=== PATIENT | male | born 1950 | race Caucasian/White ===

== ENCOUNTER 2023-03-11 15:00 | Outpatient (RCR) | payer MEDICARE, SELFPAY ==
--- NOTE | 2023-03-02 16:09 | PTOPEVAL1 ---
Assessment and note entered by Igor Randle, PT Evaluation Information Assessment Status Evaluation Diagnosis Left knee pain, Left Hip OA, Gait disturbance post stroke Onset 2020 Subjective Information Reports that he is having a lot of pain on his L LE and does not trust it. He feels unstable but f he shifts weight to right side he feel more unstable. He has been in discussion with MD about L ALBERT. He does have a history of large cell throat and lung cancer which has significantly diminished his endurance. He had the whole left top lobe of his lung out. He feels most of his L knee issue is due to left hip instability. Reported Pain Level Pain Score 3: Self Report Assessment PT Clinical Summary Patient presents with significant left hip mobility deficits affecting functional mobility, gait, and ADLs. His strength is adequate throughout his available ROM at this time. Will benefit from skilled therapy to address deficits to maximize function. Plan of Care Interventions Aquatic Therapy,Gait Training,Manual Therapy,Neuro Re-education,Therapeutic Activities,Therapeutic Exercise PT Services Indicated Yes Treatment Frequency and 2x/week for 4 weeks Duration These treatments will address the objective and functional deficits as defined above. The patient will be advanced safely and appropriately in order for the patient to progress towards his/her prior level of function. Additional exercises will be introduced and as well as a comprehensive home exercise program upon discharge, if needed, ?to ensure carryover of functional gains achieved in the clinic. This treatment plan has been reviewed and agreement upon by the patient.
--- NOTE | 2023-03-02 16:11 | OPREHPOC ---
Outpatient Therapy Plan of Care This is a Multidisciplinary Plan of Care that may contain components documented by all disciplines (PT, OT, and ST.) PT Problem 1 PT Problem #1 Knowledge Deficit PT Goal 1 Goal Patient will be independent with HEP to improve hip mobility. Target Visit 4 PT Problem 2 PT Problem #2 Impaired Gait PT Goal 1 Goal Ambulate with L stance phase passing mid stance consistently to improve functional gait cycle. PT Problem 3 PT Problem #3 Impaired Range of Motion PT Goal 1 Goal Patient will demonstrate 35 degrees of left hip external rotation to improve capsular restriction Target Visit 8 PT Goal 2 Goal Patient will achieve left hip extension of 5+ degrees to improve gait and ADL function Target Visit 8 PT Problem 4 PT Problem #4 Impaired Range of Motion PT Goal 1 Goal Demonstrate no L hip pain with terminal L knee extension Target Visit 8
--- NOTE | 2023-03-16 10:02 | PTOPDC ---
Assessment and note entered by Igor Randle, PT Discharge Information Assessment Status Discharge - Pt Not Present Diagnosis Left knee pain, Left Hip OA, Gait disturbance post stroke Onset 2020 Subjective Information Patient called and requested cancellation of appointments due to severe pain with mobilization activity. States that he does not feel that he can handle it and that the motion hurts too much. I spoke with him regarding maintaining function until his surgical procedure scheduled in June. Assessment PT Clinical Summary Patient will be discharged from therapy at this time due to lack opf progress and regression of pain with mobilization activity. We discussed his situation and the amount of structural block and instability io hip attributing to pain and mobility deficits. I recommended functional motion to tolerance and follow up with MD at this time. Plan of Care PT Services Indicated Discharge to [facility] with MD follow up.
== END 2023-03-16 11:04 | disposition home or self-care (01) ==
LOC: ANHGOSHPT 15:00
PROVIDERS: Visit Provider Physician Assistant
DX: M25.562 Pain in left knee (principal); M16.12 Unilateral primary osteoarthritis, left hip; I69.398 Other sequelae of cerebral infarction; R26.9 Unspecified abnormalities of gait and mobility
CPT/HCPCS: 97110; 97140; 97161; 97530

== ENCOUNTER 2024-10-09 08:41 | Emergency (ER) | payer MEDICARE, SELFPAY ==
--- OUTSIDE RECORDS SUMMARY | 2024-10-09 08:46 | XMS_ITS | Encounter Summary ---
Author Organization [facility] Address [address] [place] [address] Phone Care Team Providers Care Sausage Stuffer Name Role Phone Shan Johnson MD Unavailable Feliciano Bates MD Unavailable [phone] Ector Ivey MD Unavailable [phone] Shan Johnson MD Primary Care Provider + Rodrigo Orr MD Unavailable Efrain Pennington MD Unavailable Claudia Mesa MD Unavailable Sae Suárez MD Unavailable Shan Johnson MD Primary Care Provider + Simona Long MD Unavailable [phone] Melvin Cisneros MD Primary Care Provider [phone] Norma Altamirano MD Unavailable Rosey Thibodeaux [facility] Unavailable Freeman Nickerson MD Unavailable Preet Mak MD Unavailable Bird Steve MA Unavailable Encounter Details Date Type Department Care Team (Latest Contact Info) Description 04/30/2020 Orders Only [facility] Scanning, Provider Social History Tobacco Use Types Packs/Day Years Used Date Smoking Tobacco: Former Cigarettes 1.3 50 1 03/17/1969 - 01/16/2020 Smokeless Tobacco: Never Comments:Smoking History Pac ks/day: 5 Cigarettes Alcohol Use Standard Drinks/Week Comments Not Currently 0 (1 standard drink = 0.6 oz pur e alcohol) none in 1 1/2 years Sex and Gender Information Value Date Recorded Sex Assigned at Not on file Legal Sex 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 Gender Identity Not on file Sexual Orientation Not on file documented as of this encounter Plan of Treatment Not on file documented as of this encounter Procedures Procedure Name Priority Date/Time Associated Diagnosis Comments SCAN - PATHOLOGY 04/30/2020 documented in this encounter Results * SCAN - PATHOLOGY (04/30/2020) Provider Scanning Final Result documented in this encounter Visit Diagnoses Not on filedocumented in this encounter Care Teams Sausage Stuffer Relationship Specialty [place] [address] [place] [address] [place] [address] PCP - General Internal Medicine 02/06/20 09/16/20 Shan Johnson MD [address] [place] [address] [place] [address] PCP - General Internal Medicine 09/17/20 09/02/21 Melvin Cisneros MD [address] [place] [address] PCP - General Family Medicine 09/03/21 Shan Johnson MD [address] [place] [address] [place] [address] 06/12/16 09/16/20 Feliciano Bates MD [address] [address] Surgeon Cardiothoracic Surgery 02/05/20 [place] [address] [facility] [address] [place] [address] Consulting Physician Pulmonary Disease 02/05/20 3 Rodrigo Orr MD [address] [place] [address] [address] [place] [address] Consulting Physician Gastroenterology 04/05/20 09/16/20 Efrain Pennington MD [address] [place] [address] Medical Oncologist/Hematologi [facility] Oncology 04/17/20 01/07/21 Claudia Mesa MD [address] [place] [address] Consulting Physician Gastroenterology 09/17/20 Sae Suárez MD [address] [place] [address] Consulting Physician Otolaryngology 09/17/20 Simona Long MD [address] [place] [address] Medical Oncologist/Hematologi [facility] On[facility] 01/08/21 Norma Altamirano MD [address] [place] [address] Radiation Oncologist Radiation Oncology 12/23/21 Rosey Thibodeaux, [facility] [address] [place] [address] Pharmacist Pharmacy 01/29/23 03/09/23 Freeman Nickerson MD [address] [place] [address] [address] [place] [address] Consulting Physician Pulmonary Disease 09/07/22 Preet Mak MD [address] [place] [address] [address] [place] [address] Surgeon Orthopedic Surgery 07/13/23 Bird Steve MA [address] [place] [address] [employer] 07/14/23 07/15/23 documented as of this encounter
--- OUTSIDE RECORDS SUMMARY | 2024-10-09 08:46 | XMS_ITS | Clinical Summary ---
Author Organization [facility] Address [address] [place] [address] Care Team Providers Care Horse Breaker Name Role Phone Shan Johnson MD Primary Care Provider [phone] Stephen Bender MD Unavailable [phone] Source Comments [facility] [employer],non-owned Affiliates and Associated Physician Practices is amultiple site organization consisting of ambulatory clinics and hospital sitesin [place], [place], [place] and [place]. This disclosure is being madepursuant to the Care Everywhere program and may not contain all information available regarding this patient. Last updated 17.[facility] Allergies Active Allergy Reactions Criticality Noted Date Comments Ibuprofen Other 09/22/2019 Affects liver function Medications * Be aware that medications may not be up to date on this document. Alwaysverify current medications with the patient. levothyroxine (SYNTHROID) 150 MCG tablet Take 150 mcg by mouth daily before breakfast Active oxyCODONE-aceta minophen (PERCOCET) 5-325 MG tablet Take 1 tablet by mouth once daily 9 Active clopidogrel (PLAVIX) 75 MG tablet Take 1 tablet by mouth once daily 7 Active hydroCHLOROthia zide (HYDRODIURIL) 25 MG tablet Take 1 tablet by mouth once daily 0 Active atorvastatin (LIPITOR) 20 MG tablet Take 1 tablet by mouth once daily 7 Active METOPROLOL SUCCINATE ER PO Take 100 mg by mouth once daily 9 Active Active Problems Problem Noted Date Diagnosed Date Carotid occlusion, left 09/22/2019 Carotid stenosis, right 09/22/2019 History of stroke without residual deficits 03/16 Abdominal aortic aneurysm (AAA) without rupture 05/09/2018 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 05/09/2018 Current smoker 05/09/2018 Dyslipidemia 03/24/2017 Essential hypertension 12/20/2015 Overview (09/22/2019): New diagnosis 12/2015, no hx of CAD in past- ECG abnormal- asymptomatic Tx metoprolol and needs recent labs retrieved Per pt possible renal function impairment Smoking hx HTN - Hypertension Hypothyroidism 12/20/2015 Overview (09/22/2019): 11/08/2015- TSH 36-scanned to media Hypothyroid Social History Tobacco Use Types Packs/Day Years Used Date Smoking Tobacco: Every Day Cigarettes 0.5 50 Smokeless Tobacco: Never Alcohol Use Standard Drinks/Week Comments Not Currently 0 (1 standard drink = 0.6 oz pur e alcohol) Sex and Gender Information Value Date Recorded Sex Assigned at Not on file Legal Sex Male 4:43 PM CDT Gender Identity Not on file Sexual Orientation Not on file Plan of Treatment Health Maintenance Due Date Last Done Comments COLOGUARD (AGES 45-75) - COL ON CA SCREENING 1950 COLON MONITORING 1950 COLONOSCOPY - COLON CA SCREENING 1950 CT COLONOGRAPHY - COLON CA SCREENING 1950 Colorectal Cancer Screening 1950 FIT - COLON CA SCREENING 1950 FLEX SIG - COLON CA SCREENING 1950 HEPATITIS C SCREENING 01/27/1969 DTAP/TDAP/TD VACCINES (1 - Tdap) 1970 PNEUMOCOCCAL VACCINE 50+ (1 of 2 - PCV) 1970 ZOSTER VACCINE (1 of 2) 2001 COVID-19 VACCINE ( - 2023-2 5 season) 2023 DEPRESSION SCREENING 03/15/2024 INFLUENZA VACCINE (#1) 2024 Respiratory Syncytial Virus (RSV) Vaccine Pt: or over 60 yrs (1 - 1-dose 75+ series) 2026 AAA SCREENING Completed 09/22/2019 HEPATITIS B VACCINE Aged Out No longe r eligible based on patient's age to complete this topic HIB VACCINE Aged Out No longer eligi ble based on patient's age to complete this topic HPV VACCINE Aged Out No longer eligi ble based on patient's age to complete this topic MENINGOCOCCAL (Group B) VACC INE SHARED DECISION-MAKING Aged Out No longer eligibl e based on patient's age to complete this topic MENINGOCOCCAL GROUPS A/C/Y/W VACCINE Aged Out No longer eligible b ased on patient's age to complete this topic Procedures Procedure Name Priority Date/Time Associated Diagnosis Comments VAS NATHANAEL ABD DOPPLER AO IVC ILIAC Routine 09/22/2019 10:33 AM CDT Abdominal aortic aneurysm (AAA) without rupture from Last 3 Months or Most Recently Relevant to Health Maintenance Results * VAS NATHANAEL ABD DOPPLER AO IVC ILIAC (09/22/2019 10:33 AM CDT) Anatomical Region Laterality Modality Pelvis, Abdomen Intravascular Ul trasound 09/22/2019 8:57 AM CDT Narrative Procedure Note Stephen Bender MD - 09/22/2019 [facility] [address] [place] [address] Abdominal Aorto-Iliac Report Pat.Name: HERNANDO WILKINS Pat.ID: [id number] .Date: 09/22/2019 Refer.MD: TRISTAN AVILA II Exam Time: 8:57:00 AM Study Type:Abd. Aorta-Iliac Age: 11 1950,69Y Sex: MALE Sonogrphr: Jeanie Silverio RVT Pat. Stat.:Outpatient CPT - 4: 04187 Reason for Study: HX AAA in [place], previous report showed 3.3cm Procedures: Aortic Artery Duplex - Complete Race: UNAVAILABLE Visit ID: [id number] ++++++++++++++++++++++++++++++++++++ SUMMARY: ++++++++++++++++++++++++++++++++++++ Infrarenal abdominal aortic aneurysm measuring 3.1 cm. ++++++++++++++++++++++++++++++++++++ FINDINGS: ++++++++++++++++++++++++++++++++++++ Procedure: Abdominal aorta and iliac arteries were examined with duplex and color flow imaging as well as spectral Doppler analysis. Study Quality: This study is of adequate technical quality. ++++++++++++++++++++++++++++++++++++ MEASUREMENTS: ++++++++++++++++++++++++++++++++++++ DOPPLER AO Distal AO Distal PSV 52 cm/s AO Distal Dim 1 2.7 cm AO Distal Dim 2 2.8 cm AO Distal Dim 1 2.9 cm AO Distal Dim 2 2.8 cm AO Distal Dim 1 3.1 cm AO Distal Dim 2 3 cm AO Mid AO Mid PSV 56.5 cm/s AO Mid Dim 2 2.3 cm AO Mid Dim 1 2 cm AO Proximal AO Prox Dim 1 2 cm AO Prox Dim 2 2.5 cm AO Prox PSV 71.1 cm/s Left P Common Iliac Lt Prx Iliac Di 1.2 cm Lt Prx Iliac PS 100.3 cm/s Lt Prx Iliac Di 1.1 cm Lt Dist Iliac Lt Dist Iliac D 1.1 cm Lt Dist Iliac D 0.9 cm Lt Dist Iliac P 111.2 cm/s Lt Mid Iliac Lt Mid Iliac Di 1.3 cm Lt Mid Iliac Di 1.2 cm Lt Mid Iliac PS 176 cm/s Right P Common Iliac Prx Iliac PSV 97.6 cm/s Prx Iliac Dim 1 1 cm Prx Iliac Dim 2 1 cm Rt Dist Iliac Dist Iliac Dim 1.1 cm Dist Iliac PSV 114 cm/s Dist Iliac Dim 1 cm Rt Mid Iliac Mid Iliac Dim 1 1.1 cm Mid Iliac PSV 116.7 cm/s Mid Iliac Dim 2 0.9 cm Signed 09/22/2019 12:52 PM Stephen Bender MD, RPVI Tristan Avila II, MD VASCULAR LAB ORD ERABLES Edited from Last 3 Months or Most Recently Relevant to Health Maintenance Insurance [facility] MANAGED MEDICARE ADV Care Teams Horse Breaker Relationship Specialty Start Date End Date Shan Johnson MD PCP - General Internal Medicine 09/22/19 Stephen Bender MD Vascular Surgery 09/22/19
--- OUTSIDE RECORDS SUMMARY | 2024-10-09 08:46 | XMS_ITS ---
Author Organization [facility] Address [address] [place] [address] Care Team Providers Care Saw Boss Name Role Phone Feliciano Bates MD Unavailable [phone] Claudia Mesa MD Unavailable Sae Suárez MD Unavailable [phone] Simona Long MD Unavailable [phone] Melvin Cisneros MD Primary Care Provider [phone] Norma Altamirano MD Unavailable Freeman Nickerson MD Unavailable Preet Mak MD Unavailable [phone] Active Problems Problem Noted Date Diagnosed Date Muscle strain of chest wall 08/24/2024 Assessment & Plan (08/24/2024 12:04 PM CDT): Acute, occurred 6 weeks after coughing spell. Adequate relief with Tylenol and NSAIDs. - Referral to PT. Aftercare following left hip joint replacement s urgery 09/03/2023 Encounter for follow-up exam ination after completed treatment for malignant neoplasm 03/03/2022 Personal history of irradiation 03/03/2022 NSCLC of left lower lung (CMS/HCC) 12/23/2021 Cancer Staging:Pathologic stage from 12/23/2021: pT1a, cM0 - Unsigned Assessment & Plan (05/08/2022 12:28 PM HOUSE DESIGNER): Post surgery; decreased size of nodule Will continue to monitor; continue to follow with Oncology Assessment & Plan (03/18/2022 9:59 AM HOUSE DESIGNER): Patient received radiation therapy in December 2021 for left lower lobe nodule; CT imaging demonstrated resolution of nodule Patient reports he now has pain in the lower lobe, especially with deep breathing Patient has no upper or lower respiratory symptoms associated with infection Likely has some pain related to radiation therapy scarring of left lower lung Discussed with patient possible side effects of radiation therapy in the side effects may occur even several months after initial radiation therapy Patient reports pain is generally dull, only worsened with deep breathing; consider Tylenol ibuprofen for pain management LOKI (generalized anxiety disorder) 12/09/2021 Assessment & Plan (08/24/2023 1:14 PM CDT): Stable, improving; patient reports no significant improvement nighttime medicines; has mild improvement in mood and agitation; has increased sedation Will discontinue mirtazapine 50 mg nightly; switch sertraline to 100 mg nightly; will reassess Assessment & Plan (08/02/2023 4:28 PM CDT): Not well controlled; sertraline; has been getting angry, frustrated with May be related to symptoms related to recent surgery and chronic pain, as well as poor appetite and sleep Continue sertraline 100 mg daily, start mirtazapine 15 mg nightly Assessment & Plan (06/16/2022 3:47 PM CDT): Stable, improved symptoms; however continues to have some behavioral changes Increase sertraline 100 mg daily Assessment & Plan (05/08/2022 12:28 PM HOUSE DESIGNER): Significant other notes increased anxiousness; multiple health concerns Sertraline 50 mg daily Assessment & Plan (12/09/2021 12:13 PM CDT): Not well controlled; worsening; difficulty with living with systems Reports decreased appetite and changes in temper -will start with counseling, patient already on multiple mediccations and would like to minimize need for medications. Centrilobular emphysema 12/09/2021 Assessment & Plan (08/24/2023 1:15 PM CDT): It has been using breathing device running some release; increased mucus movement Continue Trelegy Ellipta Assessment & Plan (08/02/2023 4:27 PM CDT): Rare episodes of c logged in left lung clear out Symptoms mostly environmental in nature Will start Trelegy Ellipta 1 puff daily to help with breathing Assessment & Plan (06/16/2022 3:49 PM CDT): Stable, genearlly well controlled; has some wheezing and phlegm plugs; rare use of rescue inhaler Continue trelegy ellipta, albuterol prn Assessment & Plan (05/08/2022 12:28 PM HOUSE DESIGNER): Stable, well controlled, no difficulty with breathing Continue Trelegy 1 puff daily Assessment & Plan (03/18/2022 10:00 AM HOUSE DESIGNER): To have dyspnea with exertion; per patient is short of breath after climbing single flight of stairs, or playing for short duration with dog outside Patient follows with Pulmonary Continue Trelegy Ellipta 1 puff daily; patient may benefit from pulmonary rehab Discussed with patient and reconditioning, including starting regular exercise program; starting with walking about 5 minutes per day and increasing duration weekly Assessment & Plan (12/09/2021 12:14 PM CDT): Breathing has been good for patient; has some lbaoring with walkingup stairs Continue Trelegy Ellipta Chronic calcific pancreatitis 09/19/2020 Assessment & Plan (09/19/2020 6:45 PM CDT): Noted on CT. The patient is asymptomatic. There is no symptom of exocrine pancreatic insufficiency or chronic abdominal pain. Has a previous history of alcohol abuse but has stopped for over 6 years. Encouraged to continue to abstain from alcohol use. Dilated bile duct 09/18/2020 Assessment & Plan (09/19/2020 6:47 PM CDT): Incidental finding on CT. May be due to distal common bile duct stricture related to chronic calcific pancreatitis. May also be due to stone but less likely stricture or pancreatic neoplasm. Liver enzymes are normal. Magnetic resonance cholangiopancreatogram is ordered for initial evaluation. If MRCP is abnormal then ERCP will be recommended. I discussed the advantages and disadvantages of each modality with the patient and his and they verbalized understanding and agree with the plans to go with the noninvasive procedure first. Calculus of gallbladder with out cholecystitis without obstruction 09/18/2020 Assessment & Plan (09/19/2020 6:34 PM CDT): CT revealed distended gallbladder with sludge. He has had intermittent mild discomfort in the right upper quadrant. Plan The patient and his were educated about gallstones and possibility of acute cholecystitis. He was informed to call me or go to the emergency room if he experiences severe abdominal pain, vomiting, fever or chills. Obtain ultrasound of the right upper quadrant. Chemotherapy-induced neutropenia 06/04/2020 Malignant neoplasm of upper lobe of left lung Assessment & Plan (12/09/2021 12:12 PM CDT): New nodules noted on imaging, patient scheduled for biopsy Carotid occlusion, left 09/22/2019 Assessment & Plan (09/04/2021 3:12 PM CDT): Not well controlled, patient has limited changes in function and symptoms; but will require further evaluation monitoring Continue atorvastatin 20 mg nightly, clopidogrel 75 mg daily Carotid stenosis, right 09/22/2019 Assessment & Plan (06/16/2022 3:46 PM CDT): Patient has significant carotid artery disease, h/o CVA on left due to occlusion Will get repeat imaging to evaluate extent of disease Assessment & Plan (05/08/2022 12:27 PM HOUSE DESIGNER): Well controlled, no evidence of progression of disease; no lightheadedness or TIAs Continue to monitor with regular surveillance Arthritis of left acromioclavicular joint 2018 Overview (11/08/2018): Added automatically from request for surgery [id number] Biceps tendinitis of left upper extremity 2018 Overview (11/08/2018): Added automatically from request for surgery [id number] Impingement syndrome of left shoulder 11/08/2018 Overview (11/08/2018): Added automatically from request for surgery [id number] Nontraumatic incomplete tear of left rotator cuf f 11/08/2018 Overview (11/08/2018): Added automatically from request for surgery [id number] Superior glenoid labrum lesion of left shoulder 11/08/2018 Overview (11/08/2018): Added automatically from request for surgery [id number] Sensorineural hearing loss (SNHL) of both ears 0 08/12/2018 Abdominal aortic aneurysm (AAA) without rupture 05/09/2018 Assessment & Plan (06/16/2022 3:46 PM CDT): Small, 3.5 cm seen on imaging; would recommend repeat imaging in 3 years; patient received annual surveillance for metastatic diseases Assessment & Plan (05/08/2022 12:27 PM HOUSE DESIGNER): 3.4 cm in diameter; bilobed infrarenal Continue with recommended surveillance every 3-5 years Assessment & Plan (12/09/2021 12:11 PM CDT): Stable, last seen on imaging in 2020, will need repeat imaging for surveillance 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 05/09/2018 Former smoker 01/21/2017 CVA, old, hemiparesis (CMS/HCC) 01/21/2017 Assessment & Plan (06/16/2022 3:48 PM CDT): Continues to have right sided weakness; no neurology follow-up since CVA Refer to Neuro Continue atorvastatin 20 mg daily, Plavix 75 mg daily Assessment & Plan (12/09/2021 12:15 PM CDT): Has some dysphagia, chokes on foods; liquifieds food and slows down with eating If persists, consider referral to [facility] Assessment & Plan (09/04/2021 3:13 PM CDT): Stable, patient reports 3 lesions on brain scan; likely secondary to carotid plaques Continue to monitor; continue with atorvastatin 20 mg, Plavix 75 mg daily, appropriate blood pressure control Healthcare maintenance 10/01/2016 Medication management 10/01/2016 Polyp of colon 06/01/2016 Overview (08/07/2016): Colonic polyps Hypothyroidism 04/09/2016 Overview (06/18/2016): Hypothyroid Assessment & Plan (08/02/2023 4:27 PM CDT): Stable, generally well controlled; will check TSH Continue levothyroxine 175 mcg daily Assessment & Plan (06/16/2022 3:47 PM CDT): Stable, well controlled; energy levels and weight stable Continue levothyroxine 175 mcg daily Assessment & Plan (05/08/2022 12:27 PM HOUSE DESIGNER): Stable, well controlled; TSH at target Continue levothyroxine 175 mcg daily Assessment & Plan (09/04/2021 3:12 PM CDT): Stable, patient reports some low energy, the patient is also on beta-blockers Patient reports no significant changes to wait Continue levothyroxine present 5 mcg daily; check TSH and T4 today Malignant neoplasm of oropharynx 04/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 He has been out of his meds for the past 48 hours. BBs have been known to cause rebound HTN. - Resume metoprolol 100 mg daily. Assessment & Plan (08/24/2023 1:14 PM CDT): Stable, well controlled, blood pressure at goal today No orthostatics; no chest pain or pressure Continue hydrochlorothiazide 25 mg daily, metoprolol 125 mg daily Assessment & Plan (06/16/2022 3:45 PM CDT): Well controlled; bp at target today; per patient bps are better controleld at home No chest pain, no headaches or orthostatics Continue HCTZ 25 mg daily, metoprolol 125 mg daily, Assessment & Plan (05/08/2022 12:26 PM HOUSE DESIGNER): Blood pressure mildly elevated today; no chest pain; generally well controlled and past measurements Continue hydrochlorothiazide 25 mg daily, metoprolol 100 mg daily +25 mg daily Assessment & Plan (12/09/2021 11:42 AM CDT): Not well controlled, blood pressure elevated today, did not take medications Encouraged patient to continue with regular medications Continue hydrochlorothiazide 25 mg daily, metoprolol 125 mg daily Assessment & Plan (09/04/2021 3:11 PM CDT): Stable, well controlled; systolic blood pressure at target, with elevated diastolic blood pressure Patient has been off medications for approximately 1 week Will restart hydrochlorothiazide 25 mg daily Continue metoprolol 125 mg daily Current Treatment and Therapy Plans No current plan information found. Past Treatment and Therapy Plans Line Care Plan Name Start Date Discontinue Date Treatment Medications Discontinue Reason Plan Provider IV Maintenance Therapy Plan 05/21/2020 07/17/2021 No medications scheduled. Therapy Complete Efrain Pennington MD Oncology Chemotherapy Treatment Plan Name Start Date Discontinue Date Treatment Medications Discontinue Reason Plan Provider Cycles PACLItaxel / CARBOplatin 21 Day Cycles - Non-Small Cell Lung 05/21/2020 07/17/2021 CARBOplatin (PARAPLATIN)CAR BOplatin (PARAPLATIN) IVPB in 250 mLPACLitaxel (TAXOL)PACLItax el (TAXOL) IVPB in 500 mL Therapy Complete Efrain Pennington MD 3 of 4 cycles started Radiation Treatments * Course [id number]/05/2022 - 01/09/2022 Treatment Period Energy Fraction Dose Fractions Total Dose Plans Planned SBRT JACINTO 01/05/2022 - 01/09/2022 1,000 5 / 5,000 Reference Points Delivered [facility]_5000 01/05/2022 - 01/09/2022 5,000 Lifetime Dose Tracking * Chemical Lifetime Dose Automatic Entry Manual Entr y Fluoro Time 5.77 minutes 5.77 minutes 0 minutes Air kerma at the reference point (Ka,r) 70.89 mGy 7 0.89 mGy 0 mGy DLP 407 mGycm 407 mGycm 0 mGycm Resolved Problems Problem Noted Date Diagnosed Date Resolved Date Primary osteoarthritis of left hip 07/02/2023 09/03/2023 Assessment & Plan (08/24/2023 1:14 PM CDT): Patient is status post left total hip arthroplasty; reports postsurgical pain is mostly resolved; only has symptoms with certain maneuvers Patient continues to have some gait abnormalities secondary to long-term biomechanical changes due to hip pain Would recommend full engagement with physical therapy to help retrain gait; continue to strengthen hip joint Assessment & Plan (08/02/2023 4:27 PM CDT): Stable, well controlled; status post left hip arthroplasty Continues to have some pain at surgical site; follows with orthopedics for management of acute postsurgical pain Discharge home, patient to start outpatient physical therapy Continue physical therapy, continue to evaluate response Assessment & Plan (07/06/2023 4:20 PM CDT): Continues to have significant pain of left hip; difficulty with walking; follows with orthopedics; scheduled for joint replacement Reviewed labs today; normal kidney and liver function, normal serum glucose, microhematuria noted; CBC within normal limits with no significant anemia; EKG stable from prior; possible right ventricular hypertrophy No further evaluation needed at this time;
--- OUTSIDE RECORDS SUMMARY | 2024-10-09 08:46 | XMS_ITS | Referral Summary ---
Author Organization [facility] Address [address] [place] [address] Care Team Providers Care Crude Unit Operator Name Role Phone Feliciano Bates MD Unavailable [phone] Claudia Mesa MD Unavailable [phone] Sae Suárez MD Unavailable [phone] Simona Long MD Unavailable + [phone] Melvin Cisneros MD Primary Care Provider [phone] Norma Altamirano MD Unavailable [phone] Freeman Nickerson MD Unavailable Preet Mak MD Unavailable [phone] Encounters Date Type Department Care Team Description 09/27/2024 10:15 AM CDT Office Visit [facility] Care at [address] [address] Alka Dempsey NP Acute serous otitis media of left ear, recurrence not specified (Primary Dx) 09/11/2024 1:45 PM CDT Office Visit [facility] Pulmonary at [address] [place] [address] Freeman Nickerson MD 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) (Primary Dx); Centrilobular emphysema (HCC); Radiation fibrosis of lung; Esophageal dysmotility 08/24/2024 Orders Only [facility] Residency Clinic at [address] [place] [phone] Shoaib King MD Left shoulder pain, unspecified chronicity (Primary Dx); Injury of left shoulder, initial encounter 08/24/2024 11:00 AM CDT Office Visit [facility] Residency Clinic at [address] [place] [phone] Shoaib King MD Primary hypertension (Primary Dx); Muscle strain of chest wall, initial encounter; Other specified hypothyroidism 08/23/2024 Telephone [facility] [address] [place] [address] Tram Pan 08/23/2024 9:57 AM CDT - 08/23/2024 11:59 PM CDT Hospital Encounter [facility] Imaging and Radiology [address] [place] [address] Simona Long MD Malignant neoplasm of upper lobe of left lung (HCC); Abnormal chest x-ray; Abnormal radiologic density Discharge Disposition: Discharge to home or self care 08/10/2024 Orders Only [facility] [place] [address] Simona Long MD Malignant neoplasm of upper lobe of left lung (HCC) (Primary Dx); Abnormal chest x-ray; Abnormal radiologic density 08/10/2024 Telephone [facility] [place] [address] Tram Pan X-ray 08/09/2024 9:53 AM CDT - 08/09/2024 11:59 PM CDT Hospital Encounter [facility] [address] [place] [address] Discharge Disposition: Discharge to home or self care 08/04/2024 Telephone [facility] [place] [address] Tram Pan 08/01/2024 Telephone [facility] Pulmonary at [address] [place] [address] Olive Bradley, SODIUM METHYLATE OPERATOR pulled muscle 07/31/2024 Telephone [facility] [address] [place] [address] [address] Tram Pan X-ray 07/30/2024 Orders Only [facility] Scanning, Provider from Last 3 Months Allergies Active Allergy Reactions Criticality Noted Date Comments Nsaids (Non-Steroidal Anti-Inflammatory Drug) Other (See comments) Low 11/29/2018 Contra indication due to blood thinner Medications ascorbic acid (VITAMIN C) 500 mg tablet,chewable Indications:Vit youngblood deficiency prevention Take 1 tablet/chew tab (500 mg total) by mouth daily 30 tablet/chew tab 4 Active aspirin 81 mg enteric coated tabletIndicatio ns:Deep Vein Thrombosis Prevention Take 1 tablet (81 mg total) by mouth daily 42 tablet 4 Active Narcan 4 mg/actuation spray,non-aeros ol 0 4 Active sertraline (ZOLOFT) 100 mg tablet Take 1 tablet (100 mg total) by mouth nightly Take 1/2 tablets for 8 days 4 Active Additional Information Patient not taking.Reported on 05/01/2024 docusate sodium (COLACE) 100 mg capsule TAKE 1 CAPSULE BY MOUTH TWICE DAILY 60 capsule 4 Active Trelegy Ellipta 100-62.5-25 mcg inhaler INHALE 1 PUFF BY MOUTH DAILY 60 each 6 5 Active metoprolol XL (TOPROL-XL) 100 mg 24 hr tablet Take 1 tablet (100 mg total) by mouth daily 90 tablet 3 5 Active levothyroxine (SYNTHROID) 175 mcg tablet Take 1 tablet (175 mcg total) by mouth daily 90 tablet 3 5 Active hydroCHLOROthia zide (HYDRODIURIL) 25 mg tablet TAKE 1 TABLET(25 MG) BY MOUTH DAILY 90 tablet 5 Active Active Problems Problem Noted Date Diagnosed Date Muscle strain of chest wall 08/24/2024 Assessment & Plan (08/24/2024 12:04 PM CDT): Acute, occurred 6 weeks after coughing spell. Adequate relief with Tylenol and NSAIDs. - Referral to PT. Aftercare following left hip joint replacement s kylie 09/03/2023 Encounter for follow-up exam ination after completed treatment for malignant neoplasm 03/03/2022 Personal history of irradiation 03/03/2022 NSCLC of left lower lung (CMS/HCC) 12/23/2021 Cancer Staging:Pathologic stage from 12/23/2021: pT1a, cM0 - Unsigned Assessment & Plan (05/08/2022 12:28 PM ELECTRONIC INTEGRATED SYSTEMS MECHANIC): Post surgery; decreased size of nodule Will continue to monitor; continue to follow with Oncology Assessment & Plan (03/18/2022 9:59 AM ELECTRONIC INTEGRATED SYSTEMS MECHANIC): Patient received radiation therapy in December 2021 [...] daily Assessment & Plan (05/08/2022 12:28 PM ELECTRONIC INTEGRATED SYSTEMS MECHANIC): Significant other notes increased anxiousness; multiple health [...] prn Assessment & Plan (05/08/2022 12:28 PM ELECTRONIC INTEGRATED SYSTEMS MECHANIC): Stable, well controlled, no difficulty with breathing Continue Trelegy 1 puff daily Assessment & Plan (03/18/2022 10:00 AM ELECTRONIC INTEGRATED SYSTEMS MECHANIC): To have dyspnea with exertion; per patient [...] disease Assessment & Plan (05/08/2022 12:27 PM ELECTRONIC INTEGRATED SYSTEMS MECHANIC): Well controlled, no evidence of progression of disease; no lightheadedness or TIAs Continue to monitor with regular surveillance Arthritis of left acromioclavicular joint 2018 Overview (11/08/2018): Added automatically from request for surgery [id number] Biceps tendinitis of left upper extremity 2018 Overview (11/08/2018): Added automatically from request for surgery [id number] Impingement syndrome of left shoulder 11/08/2018 Overview (11/08/2018): Added automatically from request for surgery [id number] Nontraumatic incomplete tear of left rotator cuf f 11/08/2018 Overview (11/08/2018): Added automatically from request for surgery [id number] Superior glenoid labrum lesion of left shoulder 11/08/2018 Overview (11/08/2018): Added automatically from request for surgery [id number] Sensorineural hearing loss (SNHL) of both ears 0 08/12/2018 Abdominal aortic aneurysm (AAA) without rupture 05/09/2018 Assessment & Plan (06/16/2022 3:46 PM CDT): Small, 3.5 cm seen on imaging; would recommend repeat imaging in 3 years; patient received annual surveillance for metastatic diseases Assessment & Plan (05/08/2022 12:27 PM ELECTRONIC INTEGRATED SYSTEMS MECHANIC): 3.4 cm in diameter; bilobed infrarenal Continue [...] daily Assessment & Plan (05/08/2022 12:27 PM ELECTRONIC INTEGRATED SYSTEMS MECHANIC): Stable, well controlled; TSH at target Continue [...] daily, Assessment & Plan (05/08/2022 12:26 PM ELECTRONIC INTEGRATED SYSTEMS MECHANIC): Blood pressure mildly elevated today; no chest [...] mg daily Continue metoprolol 125 mg daily Resolved Problems Problem Noted Date Diagnosed Date [...] No further evaluation needed at this time; Immunizations Immunization Administration Dates Next Due Influenza, Unspecified 08/24/2023(Deferr ed: Patient Refused),07/22/2023(Deferred: Patient Refused),01/05/2023(Deferred: Patient Refused),01/05/2023(Deferred: Patient Refused),12/22/2022(Deferred: Patient Refused),12/13/2022(Deferred: Patient Refused),12/13/2022(Deferred: Patient Refused),12/13/2022(Deferred: Patient Refused),06/12/2022(Deferred: Patient Refused),03/18/2022(Deferred: Patient Refused),09/03/2021(Deferred: Patient Refused),03/15/2021(Deferred: Patient Refused),12/13/2020(Deferred: Patient Refused),12/13/2020(Deferred: Patient Refused),12/14/2019(Deferred: Patient Refused) Pneumococcal Conjugate PCV 13 02/16/2017 Pneumococcal Polysaccharide PPV23 01/14/2018 Tdap 03/15/2012 ZOSTER LIVE 02/16/2017 Social History Tobacco Use Types Packs/Day Years Used Date Smoking Tobacco: Former Cigarettes 1.5 53.5 0 07/22/1966 - 01/16/2020 Vaping Smokeless Tobacco: Never Comments:Glad it's over. Psy cho-monkey never goes away.... Alcohol Use Standard Drinks/Week Comments Not Currently 0 (1 standard drink = 0.6 oz pur e alcohol) none in 1 1/2 years AUDIT-C Answer Date Recorded Q1: How often do you have a drink containing alcohol? Never 08/24/2024 Q2: How many drinks containi ng alcohol do you have on a typical day when you are drinking? Patient does not drink Q3: How often do you have si x or more drinks on one occasion? Never 08/24/2024 PHQ-2 Answer Date Recorded PHQ-2 Total Score (If total score is 3 or more points, staff should administer the PHQ-9) 0 08/24/2024 Personal Safety Answer Date Recorded Have you ever been in or are you currently in a harmful physical or emotional relationship or is someone making you feel afraid or unsafe? Denies 07/12/2023 Sex and Gender Information Value Date Recorded Sex Assigned at Not on file Legal Sex Male 9:02 AM ELECTRONIC INTEGRATED SYSTEMS MECHANIC Gender Identity Not on file Sexual Orientation Not on file Last Filed Vital Signs Vital Sign Reading Time Taken Comments Blood Pressure 124/73 09/27/2024 10:31 AM CDT Pulse 93 09/27/2024 10:31 AM CDT Temperature 36.9 C (98.4 F) 09/27/2024 10:31 AM CDT Respiratory Rate 20 09/27/2024 10:31 AM CDT Oxygen Saturation 96% 09/27/2024 10:31 AM CDT Inhaled Oxygen Concentration - - Weight 104 kg (229 lb 4.8 oz) 09/27/2024 10:31 A M CDT Height 180.3 cm (5' 10.98) 09/27/2024 10:31 AM CDT Body Mass Index 32 09/27/2024 10:31 AM CDT Plan of Treatment Not on file Medical Devices Implanted Type Area Electronics Computer Mechanic Device Identifier Shelf Expiration Date Model / Serial / Lot [employer] 2504-1 Regenerate Tendon Gilmer Suture - [id number] Implanted:Qty: 1 on 11/30/2018 by Jos Irene MD at [facility] Left: Shoulder [employer] 02/15/2019 2504-1 / / [id number] [employer] 2169-3 Reconstitute Scaffold Large Mesh Surgical Collagen Sterile Latex - [id number] Implanted:Qty: 1 on 11/30/2018 by Jos Irene MD at [facility] Left: Shoulder [employer] 04/14/2021 2169-3 / / [id number] [employer] 2503-A Arthroscopic Delivery System Gilmer Suture Sterile Disposable - [id number] Implanted:Qty: 1 on 11/30/2018 by Jos Irene MD at [facility] Left: Shoulder [employer] 03/18/2019 2503-A / / [id number] [employer] [place] 62mm 36mm Hip Neutral Liner Acetabular Altrx Sterile Latex Free [id number] - [id number] Implanted:Qty: 1 on 07/12/2023 by Preet Mak MD at [facility] Left: Hip [employer] [id number] 04/14/2028 [id number] / / [id number] [employer] [place] 62mm Sector Hip Shell Acetabular Gription Sterile Latex Free [id number] - [id number] Implanted:Qty: 1 on 07/12/2023 by Preet Mak MD at [facility] Left: Hip [employer] [id number] 09/11/2032 [id number] / / [id number] [employer] Actis Collar Hip 9 High Offset Stem Femoral [id number] - [id number] Implanted:Qty: 1 on 07/12/2023 by Preet Mak MD at [facility] Left: Hip [employer] [id number] 06/12/2032 [id number] / / [id number] [employer] Articul/Tiago 36mm Cementless M Specification No Skirt [place]ck Latex Free [id number] - [id number] Implanted:Qty: 1 on 07/12/2023 by Preet Mak MD at [facility] Left: Hip [employer] [id number] 08/12/2025 [id number] / / Procedures Procedure Name Priority Date/Time Associated Diagnosis Comments CT CHEST W CONTRAST Schedule Routine, Read Routine (OP Routine) 08/23/2024 10:38 AM CDT Malignant neoplasm of upper lobe of left lung (HCC) Abnormal chest x-ray Abnormal radiologic density XR TRANSFER OF OUTSIDE FILMS Routine 08/09/2024 9:53 AM CDT SCAN - RADIOLOGY/IMAGING 07/30/2024 CT CHEST ABDOMEN PELVIS W CONTRAST Schedule Routine, Read Routine (OP Routine) 04/21/2024 10:20 AM ELECTRONIC INTEGRATED SYSTEMS MECHANIC Malignant neoplasm of upper lobe of left lung (HCC) HEPATITIS C ANTIBODY Routine 08/11/2023 10:05 AM CDT Encounter for hepatitis C screening test for low risk patient PSA SCREEN Routine 08/11/2023 10:05 AM CDT Screening PSA (prostate specific antigen) COLONOSCOPY 06/12/2022 8:32 AM CDT from Last 3 Months or Most Recently Relevant to Health Maintenance Results * CT chest with contrast (08/23/2024 10:38 AM CDT) Anatomical Region Laterality Modality Body N/A Computed Tomogra phy 08/23/2024 12:1 1 PM CDT Impressions 08/23/2024 12:11 PM CDT 1. Similar volume loss with left upper lobectomy and chronic appearing masslike consolidation in the left lung likely representing posttreatment changes. 2. No new pulmonary nodules. Remaining pulmonary nodules appear stable. 3. Chronic findings as above. Electronically signed by: Rodrigo Roper II, D.O. Narrative 08/23/2024 12:11 PM CDT Indication: Spiculated mass. Comparison: 04/21/2024. Technique: Contrast enhanced axial CT imaging of the chest with coronal and sagittal reconstructions. Approximately 92 mL of Optiray 350 was administered for this examination. Findings: Left upper lobectomy. No significant change in pleural-based masslike consolidation with air bronchograms in the left lower lobe extending to the perihilar region. Stable pulmonary nodules largest located in the medial right middle lobe measuring 7 mm, series 3 image 106. No definitive new nodules. Similar minimal mosaic attenuation in the peripheral left lower lobe and medial right lower lobe, unchanged. Moderate centrilobular emphysematous changes. And thoracic inlet structures are unremarkable. No mediastinal or hilar lymphadenopathy. Mild atherosclerotic calcifications in the aorta. The ascending aorta is ectatic. Diffuse hepatic steatosis. Simple cysts in both kidneys. No hydroureteronephrosis. Mild multilevel endplate changes in the visualized spine. Procedure Note Rodrigo Roper II, DO - 08/23/2024 Indication: Spiculated mass. Comparison: 04/21/2024. Technique: Contrast enhanced axial CT imaging of the chest with coronal and sagittal reconstructions. Approximately 92 mL of Optiray 350 was administered for this examination. Findings: Left upper lobectomy. No significant change in pleural-based masslike consolidation with air bronchograms in the left lower lobe extending to the perihilar region. Stable pulmonary nodules largest located in the medial right middle lobe measuring 7 mm, series 3 image 106. No definitive new nodules. Similar minimal mosaic attenuation in the peripheral left lower lobe and medial right lower lobe, unchanged. Moderate centrilobular emphysematous changes. And thoracic inlet structures are unremarkable. No mediastinal or hilar lymphadenopathy. Mild atherosclerotic calcifications in the aorta. The ascending aorta is ectatic. Diffuse hepatic steatosis. Simple cysts in both kidneys. No hydroureteronephrosis. Mild multilevel endplate changes in the visualized spine. IMPRESSION: 1. Similar volume loss with left upper lobectomy and chronic appearing masslike consolidation in the left lung likely representing posttreatment changes. 2. No new pulmonary nodules. Remaining pulmonary nodules appear stable. 3. Chronic findings as above. Electronically signed by: Rodrigo Roper II, D.O. Simona Long MD IMG CT PROCEDURES Fi nal Result * XR Outside Reference (08/09/2024 9:53 AM CDT) Impressions [facility] - 08/09/2024 9:53 AM CDT These images are for Reference purposes only and have not been reviewed by [facility]. There will be no report generated by a [facility]. Narrative [facility] - 08/09/2024 9:53 AM CDT EXAMINATION: Images For Reference Purposes Only us Rudy Meade MD IMG XR PROCEDURES Final Result [facility] * SCAN - RADIOLOGY/IMAGING (07/30/2024) Anatomical Region Laterality Modality Other us Provider Scanning Final Result * CT chest abdomen pelvis with contrast (04/21/2024 10:20 AM ELECTRONIC INTEGRATED SYSTEMS MECHANIC) Anatomical Region Laterality Modality Body N/A Computed Tomogra phy 04/21/2024 11:1 0 AM ELECTRONIC INTEGRATED SYSTEMS MECHANIC Impressions 04/21/2024 11:10 AM ELECTRONIC INTEGRATED SYSTEMS MECHANIC 1. VOLUME LOSS IN THE LEFT HEMITHORAX FROM A LEFT UPPER LOBECTOMY. 2. MILD TO MODERATE EMPHYSEMATOUS CHANGES IN THE LUNGS. 3. CONSOLIDATION IN THE LEFT LUNG CONSISTENT WITH POSTTREATMENT CHANGE. 4. PULMONARY NODULES SEEN PREVIOUSLY REMAIN STABLE. 5. NO EVIDENCE OF A NEW PULMONARY NODULE OR ADENOPATHY IN THE CHEST. 6. CORONARY ARTERY DISEASE AND AORTIC ATHEROSCLEROSIS. 7. MILD DILATATION OF THE GALLBLADDER. 8. CHRONIC CALCIFIC PANCREATITIS. 9. INFRARENAL ABDOMINAL AORTIC ANEURYSM MEASURING UP TO 3.6 CM. 10. LEFT TOTAL HIP ARTHROPLASTY. Electronically signed by: Saroj Chirinos M.D. Narrative 04/21/2024 11:10 AM ELECTRONIC INTEGRATED SYSTEMS MECHANIC EXAMINATION: CT CHEST ABDOMEN PELVIS W CONTRAST DATE: 04/21/2024 11:00 AM HISTORY: Non-small cell lung cancer of the left upper lobe. COMPARISON: 01/11/2024 TECHNIQUE: Transaxial computed tomographic images of the chest, abdomen, and pelvis were obtained following the intravenous administration of 67 mL Optiray 350. Multiplanar coronal and sagittal images were reformatted. CT CHEST: There is volume loss in the left hemithorax from a left upper lobectomy. There are mild to moderate emphysematous changes in the lungs. Consolidation with air bronchograms in the left lower lobe is unchanged and consistent with posttreatment change. Pulmonary nodules seen previously remain stable. These include a 3 mm subpleural nodule in the posterior right upper lobe (image 32), a 5 mm ruddy-fissural nodule in the right middle lobe (image 88) and a 7 mm nodule in the medial right middle lobe (image 102). There is a calcified granuloma in the right upper lobe. No evidence of a pleural effusion. The heart size is normal. There is coronary artery calcification. There are atherosclerotic changes in the thoracic aorta. No evidence of mediastinal adenopathy. CT ABDOMEN AND PELVIS: The liver and spleen appear normal. There is mild dilatation of the gallbladder. No evidence of gallstones. There are calcifications in the head of the pancreas, consistent with chronic calcific pancreatitis. No evidence of free air or free fluid in the abdomen. There are small cysts in the kidneys. The kidneys and adrenal glands otherwise appear normal. No evidence retroperitoneal adenopathy. There are atherosclerotic changes in the abdominal aorta. There is mild aneurysmal dilatation of the distal abdominal aorta which measures up to 3.6 cm and is stable. No evidence of bowel obstruction. No inflammatory lesion is seen. The urinary bladder appears normal. There has been a left total hip arthroplasty. No evidence of bony metastases. Procedure Note Saroj Chirinos MD - 04/21/2024 EXAMINATION: CT CHEST ABDOMEN PELVIS W CONTRAST DATE: 04/21/2024 11:00 AM HISTORY: Non-small cell lung cancer of the left upper lobe. COMPARISON: 01/11/2024 TECHNIQUE: Transaxial computed tomographic images of the chest, abdomen, and pelvis were obtained following the intravenous administration of 67 mL Optiray 350. Multiplanar coronal and sagittal images were reformatted. CT CHEST: There is volume loss in the left hemithorax from a left upper lobectomy. There are mild to moderate emphysematous changes in the lungs. Consolidation with air bronchograms in the left lower lobe is unchanged and consistent with posttreatment change. Pulmonary nodules seen previously remain stable. These include a 3 mm subpleural nodule in the posterior right upper lobe (image 32), a 5 mm ruddy-fissural nodule in the right middle lobe (image 88) and a 7 mm nodule in the medial right middle lobe (image 102). There is a calcified granuloma in the right upper lobe. No evidence of a pleural effusion. The heart size is normal. There is coronary artery calcification. There are atherosclerotic changes in the thoracic aorta. No evidence of mediastinal adenopathy. CT ABDOMEN AND PELVIS: The liver and spleen appear normal. There is mild dilatation of the gallbladder. No evidence of gallstones. There are calcifications in the head of the pancreas, consistent with chronic calcific pancreatitis. No evidence of free air or free fluid in the abdomen. There are small cysts in the kidneys. The kidneys and adrenal glands otherwise appear normal. No evidence retroperitoneal adenopathy. There are atherosclerotic changes in the abdominal aorta. There is mild aneurysmal dilatation of the distal abdominal aorta which measures up to 3.6 cm and is stable. No evidence of bowel obstruction. No inflammatory lesion is seen. The urinary bladder appears normal. There has been a left total hip arthroplasty. No evidence of bony metastases. IMPRESSION: 1. VOLUME LOSS IN THE LEFT HEMITHORAX FROM A LEFT UPPER LOBECTOMY. 2. MILD TO MODERATE EMPHYSEMATOUS CHANGES IN THE LUNGS. 3. CONSOLIDATION IN THE LEFT LUNG CONSISTENT WITH POSTTREATMENT CHANGE. 4. PULMONARY NODULES SEEN PREVIOUSLY REMAIN STABLE. 5. NO EVIDENCE OF A NEW PULMONARY NODULE OR ADENOPATHY IN THE CHEST. 6. CORONARY ARTERY DISEASE AND AORTIC ATHEROSCLEROSIS. 7. MILD DILATATION OF THE GALLBLADDER. 8. CHRONIC CALCIFIC PANCREATITIS. 9. INFRARENAL ABDOMINAL AORTIC ANEURYSM MEASURING UP TO 3.6 CM. 10. LEFT TOTAL HIP ARTHROPLASTY. Electronically signed by: Saroj Chirinos M.D. Simona Long MD IM CT PROCEDURES Fi nal Result * PSA screen (08/11/2023 10:05 AM CDT) PSA-Total 1.17 <=6.20 ng/mL Comment: Interpretive Data AGE SEX REFERENCE INTERVAL 0 minutes-150 years Female None 0 minutes-49 years Male None 50-59 years Male 0-3.90 60-69 years Male 0-5.40 70-79 years Male 0-6.20 80-150 years Male 0-6.20 The [employer] PSA Total assay procedure was used. Results from different manufacturers or methods may not be comparable. Serial testing should be performed using the same method. Current interpretive data last revised 21. Blood 08/11/2023 10:0 5 AM CDT 08/11/2023 1:39 PM CDT Melvin Cisneros MD LAB BLOOD ORDERABLES Nathalie l Result Performing Organization Address [facility] Co de Phone Number SONIA [id number] Department [place] [address] * Hepatitis C antibody Blood (08/11/2023 10:05 AM CDT) Hep C Ab Nonreactive Nonreactive Comment: Interpretive Data Nonreactive: Antibodies to HCV not detected. Does NOT exclude the possibility of recent exposure to HCV. Equivocal: Equivocal for HCV antibodies. Supplemental molecular testing will be automatically performed to determine infection status in accordance with current CDC screening recommendations. Reactive: Positive for HCV antibodies. This may represent current or past HCV infection. Supplemental molecular testing will be automatically performed to determine current infection status in accordance with current CDC screening recommendations. Interpretive data was last revised on 2019. Blood 08/11/2023 10:0 5 AM CDT 08/11/2023 1:39 PM CDT Melvin Cisneros MD LAB MICROBIOLOGY - GENERA L ORDERABLES Edited Result - Final Performing Organization Address [facility] Co de Phone Number SONIA LARKIN [id number] [place] [address] * COLONOSCOPY (06/12/2022 8:32 AM CDT) Anatomical Region Laterality Modality Other Narrative Procedure Note Claudia Mesa MD - 06/12/2022 8:32 AM CDT - [facility] Endoscopy Lab Patient Name: Rodrigo Wilkins Procedure Date: 06/12/2022 8:32 AM Date of : 1950 Admit Type: Outpatient Age: 72 Gender: Male Note Status: Finalized Attending MD: Claudia Mesa M.D. Procedure Date: 06/12/2022 Procedure: Colonoscopy Indications: High risk colon cancer surveillance: Personalhistory of colonic polyps, Last colonoscopy: January2022 Providers: Claudia Mesa M.D., Freeman SharmaSMALL PRODUCTS II ASSEMBLER (Anesthesia Staff), Samira Talbert RN, [facility], Technologist Referring MD: Melvin Cisneros M.D. Medicines: Monitored Anesthesia Care Complications: No immediate complications. Estimated Blood Loss: Estimated blood loss was minimal. Procedure: Pre-Anesthesia Assessment: - Prior to the procedure, a History and Physicalwas performed, and patient medications and allergieswere reviewed. The patient is competent. The risks and benefits of the procedure and the sedation optionsand risks were discussed with the patient. Allquestions were answered and informed consent was obtained. Patient identification and proposed procedure were verified by the physician, the nurse and the phonograph mechanic in the procedure room. Mental Status Examination: alert and oriented. AirwayExamination: normal oropharyngeal airway and neck mobility. Respiratory Examination: clear to auscultation. CV Examination: normal. Prophylactic Antibiotics: The patient does not require prophylactic antibiotics. Prior Anticoagulants: The patient has taken no anticoagulant or antiplatelet agents. ASA Grade Assessment: III - A patient with severe systemic disease. After reviewing the risks and benefits,the patient was deemed in satisfactory condition to undergo the procedure. The anesthesia plan was touse monitored anesthesia care (MAC). Immediately priorto administration of medications, the patient was re-assessed for adequacy to receive sedatives. The heart rate, respiratory rate, oxygen saturations, blood pressure, adequacy of pulmonary ventilation,and response to care were monitored throughout the procedure. The physical status of the patient was re-assessed after the procedure. - The risks and benefits of the procedure and the sedation options and risks were discussed with the patient. All questions were answered and informed consent was obtained. After I obtained informed consent, the scope was passed under direct vision. Throughout theprocedure, the patient's blood pressure, pulse, and oxygen saturations were monitored continuously. The scopewas passed under direct vision. The Colonoscope was introduced through the anus and advanced to the the cecum, identified by appendiceal orifice andileocecal valve. The colonoscopy was performed without difficulty. The patient tolerated the procedurewell. The quality of the bowel preparation was adequate.The bowel preparation used was Clenpiq via split dose instruction. Findings: A 5 mm polyp was found in the ascending colon. The polyp was sessile. The polyp was removed with a jumbo cold forceps. Resection andretrieval were complete. Estimated blood loss was minimal. An 8 mm polyp was found in the sigmoid colon. The polyp was sessile.The polyp was removed with a hot snare. Resection and retrieval were complete. Estimated blood loss was minimal. Multiple small and large-mouthed diverticula were found in the entire colon. Non-bleeding internal hemorrhoids were found during retroflexion. The hemorrhoids were Grade II (internal hemorrhoids that prolapse butreduce spontaneously). Impression: - One 5 mm polyp in the ascending colon, removedwith a jumbo cold forceps. Resected and retrieved. - One 8 mm polyp in the sigmoid colon, removed witha hot snare. Resected and retrieved. - Diverticulosis in the entire examined colon. - Non-bleeding internal hemorrhoids. Recommendation: - Await pathology results. - High fiber diet. - Repeat colonoscopy in 5 years for surveillance. Procedure Code(s): --- Professional --- 39697, Colonoscopy, flexible; with removal of tumor(s), polyp(s), or other lesion(s) by snare technique 47357, 59, Colonoscopy, flexible; with biopsy,single or multiple Diagnosis Code(s): --- Professional --- Z86.010, Personal history of colonic polyps D12.2, Benign neoplasm of ascending colon D12.5, Benign neoplasm of sigmoid colon K64.1, Second degree hemorrhoids K57.30, Diverticulosis of large intestine without perforation or abscess without bleeding CPT copyright 2020 [employer]. All rights reserved. The codes documented in this report are preliminary and upon dinkey engine operator reviewmay be revised to meet current compliance requirements. Electronically signed by Claudia Mesa M.D. Claudia Mesa M.D. 06/12/2022 9:15:12 AM Number of Addenda: 0 Note Initiated On: 06/12/2022 8:32 AM Claudia Mesa MD ENDOSCOPY PROCEDURES Fi nal Result from Last 3 Months or Most Recently Relevant to Health Maintenance Insurance MEDICARE ADVANTAGE MEDICARE ADVANTAGE [place] [id number] [place] [id number] Advance Directives For more information, please contact: [phone] Documents on File Type Date Recorded Patient Lead Blender Expl anation ADVANCE DIRECTIVE 01/25/2020 8:25 AM ADVANCE DIRECTIVE 01/25/2020 8:20 AM ADVANCE DIRECTIVE 01/25/2020 8:20 AM * Full Code (Latest Code Status on File) Date Activated Date Inactivated Comments 07/12/2023 1:07 PM 07/13/2023 6:30 PM * Full Code Date Activated Date Inactivated Comments 12/15/2021 11:04 AM 12/16/2021 4:46 AM * Full Code Date Activated Date Inactivated Comments 03/21/2020 2:27 PM 03/27/2020 6:24 PM Care Teams Crude Unit Operator Relationship Specialty Start Date End Date Melvin Cisneros MD [address] [place] [address] PCP - General Family Medicine 09/03/21 Feliciano Bates MD Surgeon Cardiothoracic Surgery 02/05/20 Claudia Mesa MD Consulting Physician Gastroenterology 09/17/20 Sae Suárez MD Consulting Physician Otolaryngology 09/17/20 Simona Long MD Medical Oncologist/Hematologis t Medical Oncology 01/08/21 Norma Altamirano MD [address] [place] [address] Radiation Oncologist Radiation Oncology 12/23/21 Freeman Nickerson MD [address] [place] [address] [place] [address] Consulting Physician Pulmonary Disease 09/07/22 Preet Mak MD [address] [place] [address] [address] [place] [address] Surgeon Orthopedic Surgery 07/13/23
--- OUTSIDE RECORDS SUMMARY | 2024-10-09 08:46 | XMS_ITS | Clinical Summary ---
Author Organization [facility] Address [address] [place] [id number] Care Team Providers Care Home Furnishings Sales Representative Name Role Phone Feliciano Bates MD Unavailable [phone] Claudia Mesa MD Unavailable [phone] Sae Suárez MD Unavailable [phone] Simona Long MD Unavailable [phone] Melvin Cisneros MD Primary Care Provider [phone] Norma Altamirano MD Unavailable [phone] Freeman Nickerson MD Unavailable Preet Mak MD Unavailable [phone] Allergies Active Allergy Reactions Criticality Noted Date [...] (100 mg total) by mouth nightly Take 2 tablets for 8 days 4 Active Additional [...] Unsigned Assessment & Plan (05/08/2022 12:28 PM ROLL FORMING SUPERVISOR): Post surgery; decreased size of nodule Will continue to monitor; continue to follow with Oncology Assessment & Plan (03/18/2022 9:59 AM ROLL FORMING SUPERVISOR): Patient received radiation therapy in December 2021 [...] daily Assessment & Plan (05/08/2022 12:28 PM ROLL FORMING SUPERVISOR): Significant other notes increased anxiousness; multiple health [...] prn Assessment & Plan (05/08/2022 12:28 PM ROLL FORMING SUPERVISOR): Stable, well controlled, no difficulty with breathing Continue Trelegy 1 puff daily Assessment & Plan (03/18/2022 10:00 AM ROLL FORMING SUPERVISOR): To have dyspnea with exertion; per patient [...] disease Assessment & Plan (05/08/2022 12:27 PM ROLL FORMING SUPERVISOR): Well controlled, no evidence of progression of disease; no lightheadedness or TIAs Continue to monitor with regular surveillance Arthritis of left acromioclavicular joint 2018 Overview (11/08/2018): Added automatically from request for surgery [id number] Biceps tendinitis of left upper extremity 2018 Overview (11/08/2018): Added automatically from request for surgery [id number] Impingement syndrome of left shoulder 11/08/2018 Overview (11/08/2018): Added automatically from request for surgery [id number] Nontraumatic incomplete tear of left rotator cuf f 11/08/2018 Overview (11/08/2018): Added automatically from request for surgery [id number] Superior glenoid labrum lesion of left shoulder 11/08/2018 Overview (11/08/2018): Added automatically from request for surgery [id number] Sensorineural hearing loss (SNHL) of both ears 0 08/12/2018 Abdominal aortic aneurysm (AAA) without rupture 05/09/2018 Assessment & Plan (06/16/2022 3:46 PM CDT): Small, 3.5 cm seen on imaging; would recommend repeat imaging in 3 years; patient received annual surveillance for metastatic diseases Assessment & Plan (05/08/2022 12:27 PM ROLL FORMING SUPERVISOR): 3.4 cm in diameter; bilobed infrarenal Continue with recommended surveillance every 3-5 years Assessment & Plan (12/09/2021 12:11 PM CDT): Masoud, last seen on imaging in 2020, will [...] daily Assessment & Plan (05/08/2022 12:27 PM ROLL FORMING SUPERVISOR): Stable, well controlled; TSH at target Continue [...] daily, Assessment & Plan (05/08/2022 12:26 PM ROLL FORMING SUPERVISOR): Blood pressure mildly elevated today; no chest [...] No further evaluation needed at this time; Encounters Date Type Department Care Team Description 09/27/2024 10:15 AM CDT Office Visit [facility] Care at [address] [phone] Alka Dempsey NP Acute serous otitis media of left ear, recurrence not specified (Primary Dx) 09/11/2024 1:45 PM CDT Office Visit [facility] Pulmonary at [address] [place] [address] Freeman Nickerson MD 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) (Primary Dx); Centrilobular emphysema (HCC); Radiation fibrosis of lung; Esophageal dysmotility 08/24/2024 11:00 AM CDT Office Visit [facility] Residency Clinic at [address] [place] [phone] Shoaib King MD Primary hypertension (Primary Dx); Muscle strain of chest wall, initial encounter; Other specified hypothyroidism 08/24/2024 Orders Only [facility] Residency Clinic at [address] [place] [address] Shoaib King MD Left shoulder pain, unspecified chronicity (Primary Dx); Injury of left shoulder, initial encounter 08/23/2024 9:57 AM CDT - 08/23/2024 11:59 PM CDT Hospital Encounter [facility] Imaging and Radiology [address] [place] [address] Simona Long MD Malignant neoplasm of upper lobe of left lung (HCC); Abnormal chest x-ray; Abnormal radiologic density Discharge Disposition: Discharge to home or self care 08/23/2024 Telephone [facility] Oncology [address] [address] Tram Pan 08/10/2024 Orders Only [facility] Oncology [address] [place] [phone] Simona Long MD Malignant neoplasm of upper lobe of left lung (HCC) (Primary Dx); Abnormal chest x-ray; Abnormal radiologic density 08/10/2024 Telephone [facility] Oncology [address] [phone] Tram Pan X-ray 08/09/2024 9:53 AM CDT - 08/09/2024 11:59 PM CDT Hospital Encounter [facility] [address] [place] [address] Discharge Disposition: Discharge to home or self care 08/04/2024 Telephone [facility] Oncology [address] [phone] Tram Pan 08/01/2024 Telephone [facility] Pulmonary at [address] [place] [address] Olive Bradley LPN pulled muscle 07/31/2024 Telephone [facility] Oncology [address] [place] [phone] Tram Pan X-ray 07/30/2024 Orders Only [facility] Scanning, Provider from Last 3 Months Immunizations Immunization Administration Dates Next Due Influenza, Unspecified 08/24/2023(Deferr ed: Patient Refused),07/22/2023(Deferred: Patient Refused),01/05/2023(Deferred: Patient Refused),01/05/2023(Deferred: Patient Refused),12/22/2022(Deferred: Patient Refused),12/13/2022(Deferred: Patient Refused),12/13/2022(Deferred: Patient Refused),12/13/2022(Deferred: Patient Refused),06/12/2022(Deferred: Patient Refused),03/18/2022(Deferred: Patient Refused),09/03/2021(Deferred: Patient Refused),03/15/2021(Deferred: Patient Refused),12/13/2020(Deferred: Patient Refused),12/13/2020(Deferred: Patient Refused),12/14/2019(Deferred: Patient Refused) Pneumococcal Conjugate PCV 13 02/16/2017 Pneumococcal Polysaccharide PPV23 01/14/2018 Tdap 03/15/2012 ZOSTER LIVE 02/16/2017 Surgical History Surgery Date Site/Laterality Comments ELBOW SURGERY Left ulnar decompression SHOULDER SURGERY Left arthroscopy, calcium deposits TRACHEOSTOMY history COLONOSCOPY W/ BIOPSIES AND POLYPECTOMY APPENDECTOMY 03/15/1971 - 03/14/1972 KNEE ARTHROSCOPY W/ LATERAL RELEASE Left shoulder decalcifying CATARACT EXTRACTION 11/14/2021 Left Right eye was done on 11/24/2021 COLONOSCOPY 02/02/2022 Routine, last colonoscopy 2017 COLONOSCOPY 06/12/2022 Inadequate prep on last exam LUNG CANCER SURGERY Left left lobectomy 03/20/2020 HIP SURGERY 07/12/[address] Preet Mak REVISION TOTAL HIP ARTHROPLASTY 07/12/2023 Left Medical History Medical History Date Comments Depression Hypertension Stroke (HCC) 2016 Hypothyroidism Emphysema of lung (HCC) Cancer (HCC) 2008 SCC Throat Cancer of upper lobe of left lung (HCC) squamous cell History of chemotherapy History of radiation therapy Hiatal hernia GERD (gastroesophageal reflux disease) Prediabetes Colon polyps Arthritis Hearing loss bilateral hearin g aids AAA (abdominal aortic aneurysm) Spinal stenosis Cataract Fatigue Mixed conductive and sensori neural hearing loss ->60dB at 2KhZ and over Osteoarthritis Sleep apnea Family History Medical History Relation Name Comments ALS Father Jordin ALS; Alcohol abuse Father Jordin COPD Father Jordin Pneumonia Father Jordin Pneumonia; Stroke Maternal Grandfather Cancer Mother Andie Lung cancer Mother Andie Cancer, lung; Stroke Paternal Grandfather Giorgio Wilkins Heart attack Paternal Grandmother Relation Name Status Comments Father Jordin Maternal Grandfather (Age 71) Maternal Grandmother (Age 91) Mother Andie Paternal Grandfather Giorgio Wilkins (Age 87) Paternal Grandmother (Age 84) Sister Christelle Alive Social History Tobacco Use Types Packs/Day Years [...] on file Legal Sex Male 9:02 AM ROLL FORMING SUPERVISOR Gender Identity Not on file Sexual Orientation Not on file Obstetrics History Last Filed Vital Signs Vital Sign Reading [...] 09/27/2024 10:31 AM CDT Plan of Treatment Health Maintenance Due Date Last Done Comments Zoster Vaccine (1 of 2) 04/13/2017 02/16/2017 DTaP/Tdap/Td Vaccine (2 - Td or Tdap) 03/15/2022 03/15/2012 Well Visit 65+ 09/03/2022 09/03/2021 Fall Risk Assessment 08/23/2024 08/24/2023, 07/22/2023, 07/13/2023, Additional history exists Influenza Vaccine (#1) 2024 Colon Cancer Screening-Colonoscopy 06/12/2025 06/12/2022, 02/02/2022, 05/04/2016, Additional history exists Prostate Cancer Screening-PSA 08/10/2025, 09/17/2020, 04/09/2016 Depression Screening 08/24/2025 08/24/2024, 07/22/2023, 06/15/2022, Additional history exists Pneumococcal vaccine 65+ Completed 01/14/2018, 07/2016 Colon Cancer Screening-CT Colonography Discontinued 06/12/2022, 02/02/2022, 05/04/2016, Additional history exists Colon Cancer Screening-DNA Stool Discontinued 06/12/2022, 02/02/2022, 05/04/2016, Additional history exists Colon Cancer Screening-FIT Discontinued 06/12, 02/02/2022, 05/04/2016, Additional history exists Colon Cancer Screening-Sigmoidoscopy Discontinued 06/12/2022, 02/02/2022, 05/04/2016, Additional history exists Hepatitis B Screening Completed 08/11/2023 Hepatitis C Screening Completed 08/11/2023 Abdominal Aortic Aneurysm (A AA) Screen Completed 04/21/2024, 01/17/2024, 01/11/2024, Additional history exists Medical Devices Implanted Type Area Clinical Account Liaison Device Identifier Shelf Expiration Date Model / Serial / Lot [employer] 2504-1 Regenerate Tendon [place] Suture - [id number] Implanted:Qty: 1 on 11/30/2018 by Jos Irene MD at [facility] Left: Shoulder [employer] 02/15/2019 2504-1 / / [id number] [employer] 2169-3 Reconstitute Scaffold Large Mesh Surgical Collagen Sterile Latex - [id number] Implanted:Qty: 1 on 11/30/2018 by Jos Irene MD at [facility] Left: Shoulder [employer] 04/14/2021 2169-3 / / [id number] [employer] 2503-A Arthroscopic Delivery System Hope [place] Suture Sterile Disposable - [id number] Implanted:Qty: 1 on 11/30/2018 by Jos Irene MD at [facility] Left: Shoulder [employer] 03/18/2019 2503-A / / [id number] [employer] Scotts 62mm 36mm Hip Neutral Liner Acetabular Altrx Sterile Latex Free [id number] - [id number] Implanted:Qty: 1 on 07/12/2023 by Preet Mak MD at [facility] Left: Hip [employer] [id number] 04/14/2028 [id number] / / [id number] [employer] Scotts 62mm Sector Hip Shell Acetabular Gription Sterile Latex Free [id number] - [id number] Implanted:Qty: 1 on 07/12/2023 by Preet Mak MD at [facility] Left: Hip [employer] [id number] 09/11/2032 [id number] / / [id number] [employer] Actis Collar Hip 9 High Offset Stem Femoral [id number] - [id number] Implanted:Qty: 1 on 07/12/2023 by Preet Mak MD at [facility] Left: Hip [employer] [id number] 06/12/2032 [id number] / / [id number] [employer] Articul/Tiago 36mm Cementless M Specification No Skirt French Neck Latex Free [id number] - [id number] Implanted:Qty: 1 on 07/12/2023 by Preet Mak MD at [facility] Left: Hip [employer] [id number] 08/12/2025 [id number] / / Procedures Procedure Name Priority Date/Time [...] Read Routine (OP Routine) 04/21/2024 10:20 AM ROLL FORMING SUPERVISOR Malignant neoplasm of upper lobe of left [...] only and have not been reviewed by [facility] Radiology. There will be no report generated by a [facility] Radiologist. Narrative [facility] - 08/09/2024 9:53 AM CDT EXAMINATION: Images For Reference Purposes Only Rudy Meade MD IMG XR PROCEDURES Final Result [facility] * SCAN - RADIOLOGY/IMAGING (07/30/2024) Anatomical Region Laterality Modality Other Provider Scanning Final Result * CT chest abdomen pelvis with contrast (04/21/2024 10:20 AM ROLL FORMING SUPERVISOR) Anatomical Region Laterality Modality Body N/A Computed Tomogra phy 04/21/2024 11:1 0 AM ROLL FORMING SUPERVISOR Impressions 04/21/2024 11:10 AM ROLL FORMING SUPERVISOR 1. VOLUME LOSS IN THE LEFT HEMITHORAX [...] Saroj Chirinos M.D. Narrative 04/21/2024 11:10 AM ROLL FORMING SUPERVISOR EXAMINATION: CT CHEST ABDOMEN PELVIS W CONTRAST [...] by: Saroj Chirinos M.D. Simona Long MD IMG CT PROCEDURES Fi nal Result * PSA [...] MD LAB BLOOD ORDERABLES Nathalie l Result [facility] [address] [facility] [place] [address] * Hepatitis C antibody Blood (08/11/2023 10:05 [...] 5 AM CDT 08/11/2023 1:39 PM CDT us Melvin Cisneros MD LAB MICROBIOLOGY - GENERA L ORDERABLES Edited Result - Final [facility] [id number] [facility] Department of Laboratories [place] [id number] * COLONOSCOPY (06/12/2022 8:32 AM CDT) Anatomical Region Laterality Modality Other Narrative Procedure Note Claudia Mesa MD - 06/12/2022 8:32 AM CDT [facility] Endoscopy Lab Patient Name: Rodrigo Wilkins Procedure Date: 06/12/2022 8:32 AM Date of : 1950 Admit Type: Outpatient Age: 72 Gender: Male Note Status: Finalized Attending MD: Claudia Mesa M.D. Procedure Date: 06/12/2022 Procedure: Colonoscopy Indications: High risk colon cancer surveillance: Personalhistory of colonic polyps, Last colonoscopy: January2022 Providers: Claudia Mesa M.D., Freeman Sharma,KARLA (Anesthesia Staff), Samira Talbert RN, [place], Technologist Referring MD: Melvin Cisneros M.D. Medicines: [...] by the physician, the nurse and the proj mgr in the procedure room. Mental Status Examination: [...] for surveillance. Procedure Code(s): --- Professional --- 61266, Colonoscopy, flexible; with removal of tumor(s), polyp(s), or other lesion(s) by snare technique 11290, 59, Colonoscopy, flexible; with biopsy,single or multiple Diagnosis Code(s): --- Professional --- Z86.010, Personal history of colonic polyps D12.2, Benign neoplasm of ascending colon D12.5, Benign neoplasm of sigmoid colon K64.1, Second degree hemorrhoids K57.30, Diverticulosis of large intestine without perforation or abscess without bleeding CPT copyright 2020 [employer]. All rights reserved. The codes documented in this report are preliminary and upon lead software test engineer reviewmay be revised to meet current compliance requirements. Electronically signed by Claudia Mesa M.D. Claudia Mesa M.D. 06/12/2022 9:15:12 AM Number of Addenda: 0 Note Initiated On: 06/12/2022 8:32 AM Claudia Mesa MD ENDOSCOPY PROCEDURES Fi nal Result from Last 3 Months or Most Recently Relevant to Health Maintenance Insurance [employer] MEDICARE ADVANTAGE [facility] Address: [place] [id number] [place] [id number] UHC MEDICARE ADVANTAGE [facility] Address: [place] [id number] [place] [id number] [employer]HC MEDICARE ADVANTAGE [facility] Address: [address] [address] [place] [address] [facility] MEDICARE ADVANTAGE [facility] Address: [address] [address] [place] [address] Advance Directives For more information, please contact: [phone] Documents on File Type Date Recorded Patient Horticultural Specialty Grower Field Expl anation ADVANCE DIRECTIVE 01/25/2020 8:25 AM [...] 2:27 PM 03/27/2020 6:24 PM Care Teams Home Furnishings Sales Representative Relationship Specialty Start Date End Date Melvin Cisneros MD [address] [place] [address] PCP - General Family Medicine 09/03/21 Feliciano Bates MD Surgeon Cardiothoracic Surgery 02/05/20 Claudia Mesa MD Consulting Physician Gastroenterology 09/17/20 Sae Suárez MD Consulting Physician Otolaryngology 09/17/20 Simona Long MD Medical Oncologist/Hematologis t Medical Oncology 01/08/21 Norma Altamirano MD [address] [place] [address] Radiation Oncologist Radiation Oncology 12/23/21 Freeman Nickerson MD [address] [place] [address] [address] [place] [address] Consulting Physician Pulmonary Disease 09/07/22 Preet Mak MD [address] [place] [address] [address] [place] [address] Surgeon Orthopedic Surgery 07/13/23
--- OUTSIDE RECORDS SUMMARY | 2024-10-09 08:46 | XMS_ITS | Encounter Summary ---
Author Organization [facility] Address [address] [place] [address] Care Team Providers Care Project Architect Name Role Phone Shan Johnson MD Unavailable [phone] Feliciano Bates MD Unavailable [phone] Ector Ivey MD Unavailable [phone] Shan Johnson MD Primary Care Provider + Rodrigo Orr MD Unavailable [phone] Efrain Pennington MD Unavailable [phone] Claudia Mesa MD Unavailable [phone] Sae Suárez MD Unavailable Shan Johnson MD Primary Care Provider + Shan Johnson MD Primary Care Provider + Simona Long MD Unavailable [phone] Melvin Cisneros MD Primary Care Provider [phone] Norma Altamirano MD Unavailable Rosey Thibodeaux [facility] Unavailable Freeman Nickerson MD Unavailable Preet aMk MD Unavailable [phone] Bird Steve MA Unavailable Encounter Details Date Type Department Care Team (Late st Contact Info) Description 12/15/2019 Telephone [facility] [address] [place] [address] Harjinder Santiago, RT Social History Tobacco Use Types Packs/Day Years Used Date Smoking Tobacco: Light Smoker Smokeless Tobacco: Never Comments:Smoking History Pac ks/day: 5 Cigarettes Alcohol Use Standard Drinks/Week Comments Not Currently 0 (1 standard drink = 0.6 oz pur e alcohol) Sex and Gender Information Value Date Recorded Sex Assigned at Not on file Legal Sex Male 9:02 AM TITLE SPECIALIST Gender Identity Not on file Sexual Orientation Not on file documented as of this encounter Plan of Treatment Not on file documented as of this encounter Visit Diagnoses Not on filedocumented in this encounter Care Teams Project Architect Relationship Specialty Start Date End Date Shan Johnson MD [address] [place] [address] [place] [address] PCP - General Internal Medicine 02/06/20 09/16/20 Shan Johnson MD [address] [place] [address] [place] [address] PCP - General Internal Medicine 06/12/16 02/05/20 Shan Johnson MD [address] [place] [address] [place] [address] PCP - General Internal Medicine 09/17/20 09/02/21 [place] [address] PCP - General Family Medicine 09/03/21 Shan Johnson MD [address] [place] [address] [place] [address] 06/12/16 09/16/20 Feliciano Bates MD [facility] [address] Surgeon Cardiothoracic Surgery 02/05/20 [place] [address] [facility] [address] [place] [address] Consulting Physician Pulmonary Disease 02/05/20 3 Rodrigo Orr MD [address] [place] [address] [address] [place] [address] Consulting Physician Gastroenterology 04/05/20 09/16/20 Efrain Pennington MD [address] [place] [address] Medical Oncologist/Hematologi [facility] Oncology 04/17/20 01/07/21 Claudia Mesa MD [address] [place] [address] Consulting Physician Gastroenterology 09/17/20 Sae Suárez MD [address] [place], [place] [address] Consulting Physician Otolaryngology 09/17/20 Simona Long MD [address] [place] [address] Medical Oncologist/Hematologi [facility] Oncology 01/08/21 Norma Altamirano MD [address] [place] [address] Radiation Oncologist Radiation Oncology 12/23/21 Rosey Thibodeaux [facility] [address] [facility] [address] [place] [address] Pharmacist Pharmacy 01/29/23 03/09/23 Freeman Nickerson MD [address] [place] [address] [address] [place] [address] Consulting Physician Pulmonary Disease 09/07/22 Preet Mak MD [address] [place] [address] [address] [place] [address] Surgeon Orthopedic Surgery 07/13/23 Bird Steve MA [address] [facility] [address] [place] [address] ACO Care Valve Seater Operator 07/14/23 07/15/23 documented as of this encounter
--- OUTSIDE RECORDS SUMMARY | 2024-10-09 08:46 | XMS_ITS | Encounter Summary ---
Author Organization [facility] Address [address] [place] [address] Phone Care Team Providers Care Bookkeeper Assistant Name Role Phone Feliciano Bates MD Unavailable [phone] Claudia Mesa MD Unavailable [phone] Sae Suárez MD Unavailable [phone] Simona Long MD Unavailable [phone] Melvin Cisneros MD Primary Care Provider [phone] Norma Altamirano MD Unavailable [phone] Freeman Nickerson MD Unavailable Preet Mak MD Unavailable [phone] Encounter Details Date Type Department Care Team (Latest Contact Info) Description 07/30/2024 Orders Only [facility] Scanning, [...] you have a drink containing alcohol? Never 09/07/2023 Q2: How many drinks containi ng alcohol do you have on a typical day when you are drinking? Patient does not drink Q3: How often do you have si x or more drinks on one occasion? Never 09/07/2023 PHQ-2 Answer Date Recorded PHQ-2 Total Score (If total score is 3 or more points, staff should administer the PHQ-9) 0 07/22/2023 Personal Safety Answer Date Recorded Have you ever been in or are you currently in a harmful physical or emotional relationship or is someone making you feel afraid or unsafe? 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 Gender Identity Not on file Sexual Orientation Not on file documented as of this encounter Plan of Treatment Not on file documented as of this encounter Procedures Procedure Name Priority Date/Time Associated Diagnosis Comments SCAN - RADIOLOGY/IMAGING 07/30/2024 documented in this encounter Results * SCAN - RADIOLOGY/IMAGING (07/30/2024) Anatomical Region Laterality Modality Other Provider Scanning Final Result documented in this encounter Visit Diagnoses Not on filedocumented in this encounter Care Teams Bookkeeper Assistant Relationship Specialty Start Date End Date Melvin Cisneros MD [address] [place] [address] PCP - General Family Medicine 09/03/21 Feliciano Bates MD Surgeon Cardiothoracic Surgery 02/05/20 Claudia Mesa MD Consulting Physician Gastroenterology 09/17/20 Sae Suárez MD Consulting Physician Otolaryngology 09/17/20 Simona Long MD Medical Oncologist/Hematologis t Medical Oncology 01/08/21 Norma Altamirano MD [address] [place] [address] Radiation Oncologist Radiation Oncology 12/23/21 Freeman Nickerson MD [address] [place] [address] [address] [place] [address] Consulting Physician Pulmonary Disease 09/07/22 Preet Mak MD [address] [place] [address] [address] [place] [address] Surgeon Orthopedic Surgery 07/13/23 documented as of this encounter
[2024-10-09 08:51] VITALS: BP 154/95; PULSE 89; RESP 18; TEMP 36.7; O2SAT 97
[2024-10-09 09:06] VITALS: BP 116/87; PULSE 86; RESP 16; TEMP 36.4; O2SAT 97
--- OUTSIDE RECORDS SUMMARY | 2024-10-09 09:28 | XMS_ITS | Clinical Summary ---
Author Organization [facility] Address [address] [place] [address] Care Team Providers Care Client Experience Consultant Name Role Phone Shan Johnson MD Primary Care Provider [phone] Stephen Bender MD Unavailable [phone] Source Comments [facility],non-owned Affiliates and Associated Physician Practices is amultiple site organization consisting of ambulatory clinics and hospital sitesin [place], [place] and [place]. This disclosure is being madepursuant to the Care Everywhere program and may not contain all information available regarding this patient. Last updated 17.[facility] Allergies Active Allergy Reactions Criticality Noted Date [...] Procedure Note Stephen Bender MD - 09/22/[address] [facility] [address] [facility] [address] Abdominal Aorto-Iliac Report Pat.Name: HERNANDO WILKINS Pat.ID: [id number] .Date: 09/22/2019 Refer.MD: TRISTAN AVILA II Exam Time: 8:57:00 AM Study Type:Abd. Aorta-Iliac Age: 11 1950,69Y Sex: MALE Sonogrphr: Jeanie Silverio RVT Pat. Stat.:Outpatient CPT - 4: 74640 Reason for Study: HX AAA in [place], previous report showed 3.3cm Procedures: Aortic Artery Duplex - Complete Race: UNAVAILABLE Visit ID: [id number] ++++++++++++++++++++++++++++++++++++ SUMMARY: ++++++++++++++++++++++++++++++++++++ Infrarenal abdominal aortic aneurysm [...] Most Recently Relevant to Health Maintenance Insurance [facility] MANAGED MEDICARE ADV Care Teams Client Experience Consultant Relationship Specialty Start Date End Date Shan Johnson MD PCP - General Internal Medicine 09/22/19 Stephen Bender MD Vascular Surgery 09/22/19
--- OUTSIDE RECORDS SUMMARY | 2024-10-09 09:28 | XMS_ITS | Encounter Summary ---
Author Organization [facility] Address [address] [place] [address] Care Team Providers Care Gas Line Installer Name Role Phone Shan Johnson MD Unavailable [phone] Feliciano Bates MD Unavailable [phone] Ector Ivey MD Unavailable [phone] Shan Johnson MD Primary Care Provider + Rodrigo Orr MD Unavailable [phone] Efrain Pennington MD Unavailable [phone] Claudia Mesa MD Unavailable [phone] Sae Suárez MD Unavailable Shan Johnson MD Primary Care Provider + Shan Johnson MD Primary Care Provider + Simona Long MD Unavailable [phone] Melvin Cisneros MD Primary Care Provider [phone] Norma Altamirano MD Unavailable Rosey Thibodeaux [facility] Unavailable Freeman Nickerson MD Unavailable Preet Mak MD Unavailable [phone] Bird Steve MA Unavailable Encounter Details Date Type Department Care Team (Late st Contact Info) Description 12/15/2019 Telephone [facility] [address] [place] [address] Harjinder Santiago, RT Social History Tobacco Use Types Packs/Day Years Used Date Smoking Tobacco: Light Smoker Smokeless Tobacco: Never Comments:Smoking History Pac ks/day: 5 Cigarettes Alcohol Use Standard Drinks/Week Comments Not Currently 0 (1 standard drink = 0.6 oz pur e alcohol) Sex and Gender Information Value Date Recorded Sex Assigned at Not on file 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 Gender Identity Not on file Sexual Orientation Not on file documented as of this encounter Plan of Treatment Not on file documented as of this encounter Visit Diagnoses Not on filedocumented in this encounter Care Teams Gas Line Installer Relationship Specialty Start Date End Date Shan Johnson MD [address] [place] [address] [place] [address] PCP - General Internal Medicine 02/06/20 09/16/20 Shan Johnson MD [address] [place] [address] [place] [address] PCP - General Internal Medicine 06/12/16 02/05/20 Shan Johnson MD [address] [place] [address] [place] [address] PCP - General Internal Medicine 09/17/20 09/02/21 [place] [address] PCP - General Family Medicine 09/03/21 Shan Johnson MD [address] [place] [address] [place] [address] 06/12/16 09/16/20 Feliciano Bates MD [facility] [place] [address] Surgeon Cardiothoracic Surgery 02/05/20 [place] [address] [facility] [address] [place] [address] Consulting Physician Pulmonary Disease 02/05/20 3 Rodrigo Orr MD [address] [place] [address] [address] [place] [address] Consulting Physician Gastroenterology 04/05/20 09/16/20 Efrain Pennington MD [address] [place] [address] Medical Oncologist/Hematologi [facility] Oncology 04/17/20 01/07/21 Claudia Mesa MD [address] [place] [address] Consulting Physician Gastroenterology 09/17/20 Sae Suárez MD [address] [place], [place] [address] Consulting Physician Otolaryngology 09/17/20 Simona Long MD [address] [place] [address] Medical Oncologist/Hematologi [facility] Oncology 01/08/21 Norma Altamirano MD [address] [place] [address] Radiation Oncologist Radiation Oncology 12/23/21 Rosey Thibodeaux [facility] [address] [facility] [address] [place] [address] Pharmacist Pharmacy 01/29/23 03/09/23 Freeman Nickerson MD [address] [place] [address] [address] [place] [address] Consulting Physician Pulmonary Disease 09/07/22 Preet Mak MD [address] [place] [address] [address] [place] [address] Surgeon Orthopedic Surgery 07/13/23 Bird Steve MA [address] [facility] [address] [place] [address] ACO Care Transmission Technician 07/14/23 07/15/23 documented as of this encounter
--- OUTSIDE RECORDS SUMMARY | 2024-10-09 09:29 | XMS_ITS | Continuity of Care Document ---
Author Organization [facility] Address [address] [place] [address] Phone Care Team Providers Care Roadmaster Name Role Phone Erica PERALTA FACS, [place]ism[place] Herrera le Allergies, Adverse Reactions, Alerts Substance Reaction Status Criticality ibuprofen Active No Information Medications Medication Instructions Dosage Effective Dates (start - stop) Status Comments oxycodone 5 mg capsule take 1 capsule by oral route every 6 hours as needed for pain 5 MG - Active Tirosint 112 mcg capsule take 1 capsule by oral route every day 112 MCG - Active hydrochlorothiazide 25 mg tablet take 1 tablet by oral route every day 25 MG - Active clopidogrel 75 mg tablet take 1 tablet b y oral route every day 75 MG - Active metoprolol succinate ER 100 mg tablet,extended release 24 hr take 1 tablet by oral route every day 100 MG - Active atorvastatin 20 mg tablet take 1 tablet by oral route every day 20 MG - Active Procedures Procedure Date No Charge Refraction Corneal Topography Corneal Pachymetry No Charge Optomap Fundus Photos 020 Office/outpatient Visit, Est Corneal Topography Dec- No Charge Optomap Fundus Photos 019 Office/outpatient Visit, Est Corneal Topography No Charge Refraction No Charge Optomap Fundus Photos 019 IOLMaster-Technical Eye Exam, New Patient Advance Directives Directive Yes / No Effective Date File Name No Information Encounters Encounter Description Practice Location Reason(s) For Visit Diagnoses Date Provider Providers Copied on Encounter Office/outpa tient Visit, [facility], [address] [place] [address] [address], [place], [place], [id number], [place] tel:[phone] SEC [place] Professional Cataract check/ Cornea Check (chief complaint) Combined forms of age-related cataract, bilateralEnd othelial corneal dystrophy May-2 6-202 0 Erica Bismark. [address] [place] [address] [facility], [address], [place], [place], [id number], [place]. tel:[phone] Referring Provider: Ector Medina, [address] [facility], [place], [address]. tel:[phone] Office/[place]pa [place], [facility] [address] [place] [address] [address], [place], [place], [id number], [place] tel:[phone] SEC David [place] Professional Complete Exam (chief complaint) Age-related nuclear cataract, bilateralEnd othelial corneal dystrophyAmb lyopia of left eye Oct-0 8-201 9 Erica Bismark. [address] [place], [place] [address]cre[address] [employer] [facility], [address], [place], [place], [id number], [place]. tel:[phone] Referring Provider: Ector Medina, [address] [facility], [place], [address]. tel:[phone] [facility], [address] [place] [address] [address], [place], [place], [id number], [place] tel:[phone] SEC [place] Professional Cataract evaluation (chief complaint) Age-related nuclear cataract, bilateralEnd othelial corneal dystrophyAmb lyopia of left eye Pascual-1 1-201 9 Branch Bismark. [facility] [place] [employer] [facility], [address], [place], [place], [id number], [place]. tel:[phone] Referring Provider: Ector Medina, [address] [facility], [place], [address]. tel:[phone] [facility], [address] [place] [address] [address], [place], [place], [id number], [place] tel:[phone] SEC Ochoa Martinez [place] No Information 9 Dena OD Jodi. [address] [facility], [facility] A, [place], [address], [place]. tel:[phone] Family History Family Member Type Diagnosis Age At Onset No Information Payers Payer name Insurance type Covered green party ID Authoriza tipaz(s) AARP Medicare Complete CI [id number] Social History Type Description Quantity Date Captured Comments Alcohol Use Details 3 drinks daily Caffeine Use Details 6 cups per day Tobacco Use Status Occasional cigarette smoker Smoking Status Heavy tobacco smoker Smoking Tobacco Use Details Cigarette: Age Started: 19 Cigarette: 10 Cigarettes per day Sex Male Chief Complaint And Reason For Visit From encounter dated '08/08/2019 11:30'. Cataract check/ Cornea Check (chief complaint). Description: The 69 year old male presents for evaluation of Cataract check/ Cornea Check in the right eye and left eye. Hx Cataract OU, Fuchs'OU, Amblyopia OD. Pt reports not driving for many years. Pt reports overall stable vision since last visit. Pt does not take gtts. Reason For Referral Reason For Referral No Information Plan Of Treatment Date Type Action Status Goal Tobacco cessation counseling completed Goal Tobacco cessation counseling completed Patient Education Cataracts: Care Instruc tions completed Patient Education Cataracts: Care Instruc tions completed Patient Education Cataracts: Care Instruc tions completed History Of Present Illness Encounter Date Complaint History Of Prese nt Illness Cataract check/ Cornea Check The 69 year old male presents for evaluation of Cataract check/ Cornea Check in the right eye and left eye. Hx Cataract OU, Fuchs' OU, Amblyopia OD. Pt reports not driving for many years. Pt reports overall stable vision since last visit. Pt does not take gtts. Complete Exam The 68 year old male presents for evaluation of Complete Exam in the right eye and left eye. Hx Cataract OU, Amblyopia OD, Fuchs' Dystrophy OU. Pt reports stable vision in current spec Rx since last visit. Pt denies dryness and irritations OU. Cataract evaluation The 68 year old male presents for evaluation of Cataract evaluation in the right eye and left eye. Patient would like a second opinion. Patient has floaters ou x 3 years. Patient is Amblyopic OS. Patient states he is having a hard time reading small print. Patient was scheduled for CE in [place] and patient felt rushed. Functional Status Date Functional Assessmen t No Information Instructions Date Instruction Additional Infor lemuel Impression/Plan Impression/Plan Impression/Plan Assessments Type Assessment Date assessment Combined forms of age-related ca taract, bilateral assessment Endothelial corneal dystrophy [place] Patient Care Teams Name Effective Dates (start - stop) Status Members No Information
--- OUTSIDE RECORDS SUMMARY | 2024-10-09 09:29 | XMS_ITS | Encounter Summary ---
Author Organization [facility] Address [address] [place] [address] Phone Care Team Providers Care Diabetes Nurse Name Role Phone Feliciano Bates MD Unavailable [phone] Claudia Mesa MD Unavailable [phone] Sae Suárez MD Unavailable Simona Long MD Unavailable [phone] Melvin Cisneros MD Primary Care Provider [phone] Norma Altamirano MD Unavailable [phone] Freeman Nickerson MD Unavailable Preet Mak MD Unavailable [phone] Encounter Details Date Type Department Care Team [...] on file 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 Gender Identity Not on file Sexual Orientation [...] on filedocumented in this encounter Care Teams Diabetes Nurse Relationship Specialty Start Date End Date Melvin Cisneros MD [address] [place] [address] PCP - General Family Medicine 09/03/21 Feliciano Bates MD Surgeon Cardiothoracic Surgery 02/05/20 Claudia Mesa MD Consulting Physician Gastroenterology 09/17/20 Sae Suárez MD Consulting Physician Otolaryngology 09/17/20 Simona Long MD Medical Oncologist/Hematologis t Medical Oncology 01/08/21 Norma Altamirano MD [address] [place] [address] Radiation Oncologist Radiation Oncology 12/23/21 Freeman Nickerson MD [address] [place] [address] [address] [place] [address] Consulting Physician Pulmonary Disease 09/07/22 Preet Mak MD [address] [place] [address] [address] [place] [address] Surgeon Orthopedic Surgery 07/13/23 documented as of this encounter
--- OUTSIDE RECORDS SUMMARY | 2024-10-09 09:29 | XMS_ITS | Encounter Summary ---
Author Organization [facility] Address [address] [place] [address] Phone Care Team Providers Care Maintainer Central Office Name Role Phone Shan Johnson MD Unavailable Feliciano Bates MD Unavailable [phone] Ector Ivey MD Unavailable [phone] Shan Johnson MD Primary Care Provider + Rodrigo Orr MD Unavailable Efrain Pennington MD Unavailable Claudia Mesa MD Unavailable Sae Suárez MD Unavailable Shan Johnson MD Primary Care Provider + Simona Long MD Unavailable [phone] Melvin Cisneros MD Primary Care Provider [phone] Norma Altamirano MD Unavailable Rosey Thibodeaux [facility] Unavailable Freeman Nickerson MD Unavailable Preet Mak MD Unavailable [phone] Bird Steve MA Unavailable Encounter Details Date [...] on file 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 Gender Identity Not on file Sexual Orientation [...] on filedocumented in this encounter Care Teams Maintainer Central Office Relationship Specialty [place] [address] [place] [address] [place] [address] PCP - General Internal Medicine 02/06/20 09/16/20 Shan Johnson MD [address] [place] [address] [place] [address] PCP - General Internal Medicine 09/17/20 09/02/21 Melvin Cisneros MD [address] [place] [address] PCP - General Family Medicine 09/03/21 Shan Johnson MD [address] [place] [address] [place] [address] 06/12/16 09/16/20 Feliciano Bates MD [address] [facility] [place] [address] Surgeon Cardiothoracic Surgery 02/05/20 [place] [address] [facility] [address] [place] [address] Consulting Physician Pulmonary Disease 02/05/20 3 Rodrigo Orr MD [address] [place] [address] [address] [place] [address] Consulting Physician Gastroenterology 04/05/20 09/16/20 Efrain Pennington MD [address] [place] [address] Medical Oncologist/Hematologi [facility] Oncology 04/17/20 01/07/21 Claudia Mesa MD [address] [place] [address] Consulting Physician Gastroenterology 09/17/20 Sae Suárez MD [address] [place] [address] Consulting Physician Otolaryngology 09/17/20 Simona Long MD [address] [place] [address] Medical Oncologist/Hematologi [facility] Oncology 01/08/21 Norma Altamirano MD [address] [place] [address] Radiation Oncologist Radiation Oncology 12/23/21 Rosey Thibodeaux, [facility] [address] [facility] [facility] [address] [place] [address] Pharmacist Pharmacy 01/29/23 03/09/23 Freeman Nickerson MD [address] [place] [address] [address] [place] [address] Consulting Physician Pulmonary Disease 09/07/22 Preet Mak MD [address] [place] [address] [address] [place] [address] Surgeon Orthopedic Surgery 07/13/23 Bird Steve MA [address] [facility] [address] [place] [address] ACO Care Operations Administrative Assistant 07/14/23 07/15/23 documented as of this encounter
--- OUTSIDE RECORDS SUMMARY | 2024-10-09 09:29 | XMS_ITS | Clinical Summary ---
Author Organization [facility] Address [address] [place] [address] Care Team Providers Care Urban Gardening Specialist Name Role Phone Feliciano Bates MD Unavailable [phone] Claudia Mesa MD Unavailable [phone] Sae Suárez MD Unavailable Simona Long MD Unavailable [phone] Melvin Cisneros MD Primary Care Provider [phone] Norma Altamirano MD Unavailable [phone] Freeman Nickerson MD Unavailable Preet Mak MD Unavailable [phone] Allergies Active Allergy Reactions Criticality Noted Date [...] Unsigned Assessment & Plan (05/08/2022 12:28 PM PLANNING ENGINEER): Post surgery; decreased size of nodule Will continue to monitor; continue to follow with Oncology Assessment & Plan (03/18/2022 9:59 AM PLANNING ENGINEER): Patient received radiation therapy in December 2021 [...] daily Assessment & Plan (05/08/2022 12:28 PM PLANNING ENGINEER): Significant other notes increased anxiousness; multiple health [...] prn Assessment & Plan (05/08/2022 12:28 PM PLANNING ENGINEER): Stable, well controlled, no difficulty with breathing Continue Trelegy 1 puff daily Assessment & Plan (03/18/2022 10:00 AM PLANNING ENGINEER): To have dyspnea with exertion; per patient [...] disease Assessment & Plan (05/08/2022 12:27 PM PLANNING ENGINEER): Well controlled, no evidence of progression of disease; no lightheadedness or TIAs Continue to monitor with regular surveillance Arthritis of left acromioclavicular joint 2018 Overview (11/08/2018): Added automatically from request for surgery [id number] Biceps tendinitis of left upper extremity 2018 Overview (11/08/2018): Added automatically from request for surgery [id number] Impingement syndrome of left shoulder 11/08/2018 Overview (11/08/2018): Added automatically from request for surgery [id number] Nontraumatic incomplete tear of left rotator cuf f 11/08/2018 Overview (11/08/2018): Added automatically from request for surgery [id number] Superior glenoid labrum lesion of left shoulder 11/08/2018 Overview (11/08/2018): Added automatically from request for surgery [id number] Sensorineural hearing loss (SNHL) of both ears 0 08/12/2018 Abdominal aortic aneurysm (AAA) without rupture 05/09/2018 Assessment & Plan (06/16/2022 3:46 PM CDT): Small, 3.5 cm seen on imaging; would recommend repeat imaging in 3 years; patient received annual surveillance for metastatic diseases Assessment & Plan (05/08/2022 12:27 PM PLANNING ENGINEER): 3.4 cm in diameter; bilobed infrarenal Continue [...] daily Assessment & Plan (05/08/2022 12:27 PM PLANNING ENGINEER): Stable, well controlled; TSH at target Continue [...] daily, Assessment & Plan (05/08/2022 12:26 PM PLANNING ENGINEER): Blood pressure mildly elevated today; no chest [...] Description 09/27/2024 10:15 AM CDT Office Visit [facility] [address] [phone] Alka Dempsey NP Acute serous otitis media of left ear, recurrence not specified (Primary Dx) 09/11/2024 1:45 PM CDT Office Visit [facility] Pulmonary at [address] [place] [address] Freeman Nickerson MD 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) (Primary Dx); Centrilobular emphysema (HCC); Radiation fibrosis of lung; Esophageal dysmotility 08/24/2024 11:00 AM CDT Office Visit [facility] Res[facility] at [address] [place] [phone] Shoaib King MD Primary hypertension (Primary Dx); Muscle strain of chest wall, initial encounter; Other specified hypothyroidism 08/24/2024 Orders Only [facility] at [address] [place] [phone] Shoaib King MD Left shoulder pain, unspecified chronicity (Primary Dx); Injury of left shoulder, initial encounter 08/23/2024 9:57 AM CDT - 08/23/2024 11:59 PM CDT Hospital Encounter [facility] [address] [place] [address] Simona Long MD Malignant neoplasm of upper lobe of left lung (HCC); Abnormal chest x-ray; Abnormal radiologic density Discharge Disposition: Discharge to home or self care 08/23/2024 [address]phone [facility] [address] [address] Tram Pan 08/10/2024 Orders Only [facility] [address] [place] [phone] Simona Long MD Malignant neoplasm of upper lobe of left lung (HCC) (Primary Dx); Abnormal chest x-ray; Abnormal radiologic density 08/10/2024 Telephone [facility] [address] [phone] Tram Pan X-ray 08/09/2024 9:53 AM CDT - 08/09/2024 11:59 PM CDT Hospital Encounter [facility] [address] [place] [phone] Discharge Disposition: Discharge to home or self care 08/04/2024 Telephone [facility] [address] [phone] Tram Pan 08/01/2024 Telephone [facility] Pulmonary at [address] [place] [address] Olive Bradley LPN pulled muscle 07/31/2024 Telephone [facility] [address] [place] [phone] Tram Pan X-ray 07/30/2024 Orders Only [facility] [...] on file Legal Sex Male 9:02 AM PLANNING ENGINEER Gender Identity Not on file Sexual Orientation [...] history exists Medical Devices Implanted Type Area Marble Supervisor Device Identifier Shelf Expiration Date Model / Serial / Lot [employer] 2504-1 Regenerate Tendon [place] Suture - [id number] Implanted:Qty: 1 on 11/30/2018 by Jos Irene MD at [facility] Left: Shoulder [employer] 02/15/2019 2504-1 / / [id number] [employer] 2169-3 Reconstitute Scaffold Large Mesh Surgical Collagen Sterile Latex - [id number] Implanted:Qty: 1 on 11/30/2018 by Jos Irene MD at [facility] Left: Shoulder [employer] 04/14/2021 2169-3 / / [id number] [employer] 2503-A Arthroscopic Delivery System [place] Suture Sterile Disposable - [id number] Implanted:Qty: 1 on 11/30/2018 by Jos Irene MD at [facility] Left: Shoulder [employer] 03/18/2019 2503-A / / [id number] [employer] [place] 62mm 36mm Hip Neutral Liner Acetabular Altrx Sterile Latex Free [id number] - [id number] Implanted:Qty: 1 on 07/12/2023 by Preet Mak MD at [facility] Left: Hip [employer] [id number] 04/14/2028 [id number] / / [id number] [employer] [place] 62mm Sector Hip Shell Acetabular Gription Sterile Latex Free [id number] - [id number] Implanted:Qty: 1 on 07/12/2023 by Preet Mak MD at [facility] Left: Hip [employer] [id number] 09/11/2032 [id number] / / [id number] [employer] Actis Collar Hip 9 High Offset Stem Femoral [id number] - [id number] Implanted:Qty: 1 on 07/12/2023 by Preet Mak MD at [facility] Left: Hip [employer] [id number] 06/12/2032 [id number] / / [id number] [employer] Articul/Tiago 36mm Cementless M Specification No Skirt Vietnamese Neck Latex Free [id number] - [id number] Implanted:Qty: 1 on 07/12/2023 by Preet Mak MD at [facility] Left: Hip [employer] [id number] 08/12/2025 [id number] / / Procedures Procedure Name Priority Date/Time [...] Read Routine (OP Routine) 04/21/2024 10:20 AM PLANNING ENGINEER Malignant neoplasm of upper lobe of left [...] only and have not been reviewed by [facility]. There will be no report generated by a [facility] Radiologist. Narrative [facility] - 08/09/2024 9:53 AM CDT EXAMINATION: Images For Reference Purposes Only Rudy Meade MD IMG XR PROCEDURES Final Result [facility] * SCAN - RADIOLOGY/IMAGING (07/30/2024) Anatomical Region Laterality Modality Other Provider Scanning Final Result * CT chest abdomen pelvis with contrast (04/21/2024 10:20 AM PLANNING ENGINEER) Anatomical Region Laterality Modality Body N/A Computed Tomogra phy 04/21/2024 11:1 0 AM PLANNING ENGINEER Impressions 04/21/2024 11:10 AM PLANNING ENGINEER 1. VOLUME LOSS IN THE LEFT HEMITHORAX [...] Saroj Chirinos M.D. Narrative 04/21/2024 11:10 AM PLANNING ENGINEER EXAMINATION: CT CHEST ABDOMEN PELVIS W CONTRAST [...] MD LAB BLOOD ORDERABLES Nathalie l Result [facility] [address] [address] [facility] Department of [employer] [place] [address] * Hepatitis C antibody Blood [...] L ORDERABLES Edited Result - Final [facility] [address] [address] Department of Laboratories [place] [id number] * COLONOSCOPY (06/12/2022 8:32 AM CDT) Anatomical Region Laterality Modality Other Narrative Procedure Note Claudia Mesa MD - 06/12/2022 8:32 AM CDT [facility] Endoscopy Lab Patient Name: Rodrigo Wilkins [...] by the physician, the nurse and the boring machine operator in the procedure room. Mental Status Examination: [...] for surveillance. Procedure Code(s): --- Professional --- 20024, Colonoscopy, flexible; with removal of tumor(s), polyp(s), or other lesion(s) by snare technique 24100, 59, Colonoscopy, flexible; with biopsy,single or multiple Diagnosis Code(s): --- Professional --- Z86.010, Personal history of colonic polyps D12.2, Benign neoplasm of ascending colon D12.5, Benign neoplasm of sigmoid colon K64.1, Second degree hemorrhoids K57.30, Diverticulosis of large intestine without perforation or abscess without bleeding CPT copyright 2020 [employer]. All rights reserved. The codes documented in this report are preliminary and upon power generation turbine room operator reviewmay be revised to meet current compliance requirements. Electronically signed by Claudia Mesa M.D. Claudia Mesa M.D. 06/12/2022 9:15:12 AM Number of Addenda: 0 Note Initiated On: 06/12/2022 8:32 AM Claudia Mesa MD ENDOSCOPY PROCEDURES Fi nal Result from Last 3 Months or Most Recently Relevant to Health Maintenance Insurance UHC MEDICARE ADVANTAGE UHC MEDICARE ADVANTAGE UHC MEDICARE ADVANTAGE [facility] MEDICARE ADVANTAGE Advance Directives For more information, please contact: [phone] Documents on File Type Date Recorded Patient Polisher Sand Expl anation ADVANCE DIRECTIVE 01/25/2020 8:25 AM [...] 2:27 PM 03/27/2020 6:24 PM Care Teams Urban Gardening Specialist Relationship Specialty Start Date End Date Melvin Cisneros MD [address] [place] [address] PCP - General Family Medicine 09/03/21 Feliciano Bates MD Surgeon Cardiothoracic Surgery 02/05/20 Claudia Mesa MD Consulting Physician Gastroenterology 09/17/20 Sae Suárez MD Consulting Physician Otolaryngology 09/17/20 Simona Long MD Medical Oncologist/Hematologis t Medical Oncology 01/08/21 Norma Altamirano MD [address] [place] [address] Radiation Oncologist Radiation Oncology 12/23/21 Freeman Nickerson MD [address] [place] [address] [address] [place] [address] Consulting Physician Pulmonary Disease 09/07/22 Preet Mak MD [address] [place] [address] [address] [place] [address] Surgeon Orthopedic Surgery 07/13/23
--- OUTSIDE RECORDS SUMMARY | 2024-10-09 09:29 | XMS_ITS ---
Author Organization [facility] Address [address] [place] [address] Care Team Providers Care Lockstitcher Name Role Phone Feliciano Bates MD Unavailable [phone] Claudia Mesa MD Unavailable [phone] Sae Suárez MD Unavailable [phone] Simona Long MD Unavailable [phone] Melvin Cisneros MD Primary Care Provider [phone] Norma Altamirano MD Unavailable [phone] Freeman Nickerson MD Unavailable Preet Mak MD Unavailable [phone] Active Problems Problem Noted Date Diagnosed Date [...] Unsigned Assessment & Plan (05/08/2022 12:28 PM HEALTH INSURANCE ASSESSOR): Post surgery; decreased size of nodule Will continue to monitor; continue to follow with Oncology Assessment & Plan (03/18/2022 9:59 AM HEALTH INSURANCE ASSESSOR): Patient received radiation therapy in December 2021 [...] daily Assessment & Plan (05/08/2022 12:28 PM HEALTH INSURANCE ASSESSOR): Significant other notes increased anxiousness; multiple health [...] prn Assessment & Plan (05/08/2022 12:28 PM HEALTH INSURANCE ASSESSOR): Stable, well controlled, no difficulty with breathing Continue Trelegy 1 puff daily Assessment & Plan (03/18/2022 10:00 AM HEALTH INSURANCE ASSESSOR): To have dyspnea with exertion; per patient [...] disease Assessment & Plan (05/08/2022 12:27 PM HEALTH INSURANCE ASSESSOR): Well controlled, no evidence of progression of disease; no lightheadedness or TIAs Continue to monitor with regular surveillance Arthritis of left acromioclavicular joint 2018 Overview (11/08/2018): Added automatically from request for surgery [id number] Biceps tendinitis of left upper extremity 2018 Overview (11/08/2018): Added automatically from request for surgery [id number] Impingement syndrome of left shoulder 11/08/2018 Overview (11/08/2018): Added automatically from request for surgery [id number] Nontraumatic incomplete tear of left rotator cuf f 11/08/2018 Overview (11/08/2018): Added automatically from request for surgery [id number] Superior glenoid labrum lesion of left shoulder 11/08/2018 Overview (11/08/2018): Added automatically from request for surgery [id number] Sensorineural hearing loss (SNHL) of both ears 0 08/12/2018 Abdominal aortic aneurysm (AAA) without rupture 05/09/2018 Assessment & Plan (06/16/2022 3:46 PM CDT): Small, 3.5 cm seen on imaging; would recommend repeat imaging in 3 years; patient received annual surveillance for metastatic diseases Assessment & Plan (05/08/2022 12:27 PM HEALTH INSURANCE ASSESSOR): 3.4 cm in diameter; bilobed infrarenal Continue [...] daily Assessment & Plan (05/08/2022 12:27 PM HEALTH INSURANCE ASSESSOR): Stable, well controlled; TSH at target Continue [...] daily, Assessment & Plan (05/08/2022 12:26 PM HEALTH INSURANCE ASSESSOR): Blood pressure mildly elevated today; no chest [...] 1,000 5 / 5,000 Reference Points Delivered [facility]_5000 01/05/2022 - 01/09/2022 5,000 Lifetime Dose Tracking [...]
--- OUTSIDE RECORDS SUMMARY | 2024-10-09 09:29 | XMS_ITS | Referral Summary ---
Author Organization [facility] Address [address] [place] [address] Care Team Providers Care Help Desk Assistant Name Role Phone Feliciano Bates MD Unavailable [phone] Claudia Mesa MD Unavailable [phone] Sae Suárez MD Unavailable [phone] Simona Logn MD Unavailable + [phone] Melvin Cisneros MD Primary Care Provider [phone] Norma Altamirano MD Unavailable [phone] Freeman Nickerson MD Unavailable Preet Mak MD Unavailable [phone] Encounters Date Type Department Care Team Description 09/27/2024 10:15 AM CDT Office Visit [facility] Care at [address] [address] Alka Dempsey NP Acute serous otitis media of left ear, recurrence not specified (Primary Dx) 09/11/2024 1:45 PM CDT Office Visit [facility] Pulmonary at [address] [place] [address] Freeman Nickerson MD 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) (Primary Dx); Centrilobular emphysema (HCC); Radiation fibrosis of lung; Esophageal dysmotility 08/24/2024 Orders Only [facility] Residency Clinic at [address] [place] [phone] Shoaib King MD Left shoulder pain, unspecified chronicity (Primary Dx); Injury of left shoulder, initial encounter 08/24/2024 11:00 AM CDT Office Visit [facility] Residency Clinic at [address] [place] [phone] Shoaib King MD Primary hypertension (Primary Dx); Muscle strain of chest wall, initial encounter; Other specified hypothyroidism 08/23/2024 Telephone [facility] [address] [place] [address] Tram Pan 08/23/2024 9:57 AM CDT - 08/23/2024 11:59 PM CDT Hospital Encounter [facility] Radiology [address] [place] [address] Simona Long MD Malignant neoplasm of upper lobe of left lung (HCC); Abnormal chest x-ray; Abnormal radiologic density Discharge Disposition: Discharge to home or self care 08/10/2024 Orders Only [facility] [place] [address] Simona Long MD Malignant neoplasm of upper lobe of left lung (HCC) (Primary Dx); Abnormal chest x-ray; Abnormal radiologic density 08/10/2024 Telephone [facility] [place] [address] Tram Pan X-ray 08/09/2024 9:53 AM CDT - 08/09/2024 11:59 PM CDT Hospital Encounter [facility] [address] [place] [address] Discharge Disposition: Discharge to home or self care 08/04/2024 Telephone [facility] [place] [address] Tram Pan 08/01/2024 Telephone [facility] Pulmonary at [address] [place] [phone] Olive Bradley, STAGE PRODUCER pulled muscle 07/31/2024 Telephone [facility] [address] [place] [address] [address] rTam Pan X-ray 07/30/2024 Orders Only [facility] [...] Unsigned Assessment & Plan (05/08/2022 12:28 PM AUTO SERVICE ADVISOR): Post surgery; decreased size of nodule Will continue to monitor; continue to follow with Oncology Assessment & Plan (03/18/2022 9:59 AM AUTO SERVICE ADVISOR): Patient received radiation therapy in December 2021 [...] daily Assessment & Plan (05/08/2022 12:28 PM AUTO SERVICE ADVISOR): Significant other notes increased anxiousness; multiple health [...] prn Assessment & Plan (05/08/2022 12:28 PM AUTO SERVICE ADVISOR): Stable, well controlled, no difficulty with breathing Continue Trelegy 1 puff daily Assessment & Plan (03/18/2022 10:00 AM AUTO SERVICE ADVISOR): To have dyspnea with exertion; per patient [...] disease Assessment & Plan (05/08/2022 12:27 PM AUTO SERVICE ADVISOR): Well controlled, no evidence of progression of disease; no lightheadedness or TIAs Continue to monitor with regular surveillance Arthritis of left acromioclavicular joint 2018 Overview (11/08/2018): Added automatically from request for surgery [id number] Biceps tendinitis of left upper extremity 2018 Overview (11/08/2018): Added automatically from request for surgery [id number] Impingement syndrome of left shoulder 11/08/2018 Overview (11/08/2018): Added automatically from request for surgery [id number] Nontraumatic incomplete tear of left rotator cuf f 11/08/2018 Overview (11/08/2018): Added automatically from request for surgery [id number] Superior glenoid labrum lesion of left shoulder 11/08/2018 Overview (11/08/2018): Added automatically from request for surgery [id number] Sensorineural hearing loss (SNHL) of both ears 0 08/12/2018 Abdominal aortic aneurysm (AAA) without rupture 05/09/2018 Assessment & Plan (06/16/2022 3:46 PM CDT): Small, 3.5 cm seen on imaging; would recommend repeat imaging in 3 years; patient received annual surveillance for metastatic diseases Assessment & Plan (05/08/2022 12:27 PM AUTO SERVICE ADVISOR): 3.4 cm in diameter; bilobed infrarenal Continue [...] daily Assessment & Plan (05/08/2022 12:27 PM AUTO SERVICE ADVISOR): Stable, well controlled; TSH at target Continue [...] daily, Assessment & Plan (05/08/2022 12:26 PM AUTO SERVICE ADVISOR): Blood pressure mildly elevated today; no chest [...] on file Legal Sex Male 9:02 AM AUTO SERVICE ADVISOR Gender Identity Not on file Sexual Orientation [...] on file Medical Devices Implanted Type Area Vehicle Operator Device Identifier Shelf Expiration Date Model / Serial / Lot [employer] 2504-1 Regenerate Tendon [place] Suture - [id number] Implanted:Qty: 1 on 11/30/2018 by Jos Irene MD at [facility] Left: Shoulder [employer] 02/15/2019 2504-1 / / [id number] [employer] 2169-3 Reconstitute Scaffold Large Mesh Surgical Collagen Sterile Latex - [id number] Implanted:Qty: 1 on 11/30/2018 by Jos Irene MD at [facility] Left: Shoulder [employer] 04/14/2021 2169-3 / / [id number] [employer] 2503-A Arthroscopic Delivery System [place] Suture Sterile Disposable - [id number] Implanted:Qty: 1 on 11/30/2018 by Jos Irene MD at [facility] Left: Shoulder [employer] 03/18/2019 2503-A / / [id number] [employer] [place] 62mm 36mm Hip Neutral Liner Acetabular Altrx Sterile Latex Free [id number] - [id number] Implanted:Qty: 1 on 07/12/2023 by Preet Mak MD at [facility] Left: Hip [employer] [id number] 04/14/2028 [id number] / / [id number] [employer] [place] 62mm Sector Hip Shell Acetabular Gription Sterile Latex Free [id number] - [id number] Implanted:Qty: 1 on 07/12/2023 by Preet Mak MD at [facility] Left: Hip [employer] [id number] 09/11/2032 [id number] / / [id number] [employer] Actis Collar Hip 9 High Offset Stem Femoral [id number] - [id number] Implanted:Qty: 1 on 07/12/2023 by Preet Mak MD at [facility] Left: Hip [employer] [id number] 06/12/2032 [id number] / / [id number] [employer] Articul/Tiago 36mm Cementless M Specification No Skirt [place] Latex Free [id number] - [id number] Implanted:Qty: 1 on 07/12/2023 by Preet Mak MD at [facility] Left: Hip [employer] [id number] 08/12/2025 [id number] / / Procedures Procedure Name Priority Date/Time [...] Read Routine (OP Routine) 04/21/2024 10:20 AM AUTO SERVICE ADVISOR Malignant neoplasm of upper lobe of left [...] only and have not been reviewed by [facility]. There will be no report generated by a [facility]. Narrative [facility] - 08/09/2024 9:53 AM CDT EXAMINATION: Images For Reference Purposes Only us Rudy Meade MD IMG XR PROCEDURES Final Result [facility] * SCAN - RADIOLOGY/IMAGING (07/30/2024) Anatomical Region Laterality Modality Other us Provider Scanning Final Result * CT chest abdomen pelvis with contrast (04/21/2024 10:20 AM AUTO SERVICE ADVISOR) Anatomical Region Laterality Modality Body N/A Computed Tomogra phy 04/21/2024 11:1 0 AM AUTO SERVICE ADVISOR Impressions 04/21/2024 11:10 AM AUTO SERVICE ADVISOR 1. VOLUME LOSS IN THE LEFT HEMITHORAX [...] Saroj Chirinos M.D. Narrative 04/21/2024 11:10 AM AUTO SERVICE ADVISOR EXAMINATION: CT CHEST ABDOMEN PELVIS W CONTRAST [...] ORDERABLES Nathalie l Result Performing Organization Address [facility] Co de Phone Number SONIA [address] [place] [address] * Hepatitis C antibody Blood (08/11/2023 10:05 [...] Edited Result - Final Performing Organization Address [facility] Co de Phone Number SONIA LARKIN [address] [place] [address] * COLONOSCOPY (06/12/2022 8:32 AM CDT) Anatomical Region Laterality Modality Other Narrative Procedure Note Claudia Mesa MD - 06/12/2022 8:32 AM CDT - [facility] Patient Name: Rodrigo Wilkins Procedure Date: 06/12/2022 8:32 AM Date of : 1950 Admit Type: Outpatient Age: 72 Gender: Male Note Status: Finalized Attending MD: Claudia Mesa M.D. Procedure Date: 06/12/2022 Procedure: Colonoscopy Indications: High risk colon cancer surveillance: Personalhistory of colonic polyps, Last colonoscopy: January2022 Providers: Claudia Mesa M.D., Freeman SharmaIBM WEBSPHERE COMMERCE DEVELOPER (Anesthesia Staff), Samira Talbert RN, [facility], Technologist Referring MD: Melvin Cisneros M.D. Medicines: [...] by the physician, the nurse and the finishing room operator in the procedure room. Mental Status [...] for surveillance. Procedure Code(s): --- Professional --- 56206, Colonoscopy, flexible; with removal of tumor(s), polyp(s), or other lesion(s) by snare technique 00589, 59, Colonoscopy, flexible; with biopsy,single or multiple Diagnosis Code(s): --- Professional --- Z86.010, Personal history of colonic polyps D12.2, Benign neoplasm of ascending colon D12.5, Benign neoplasm of sigmoid colon K64.1, Second degree hemorrhoids K57.30, Diverticulosis of large intestine without perforation or abscess without bleeding CPT copyright 2020 [employer]. All rights reserved. The codes documented in this report are preliminary and upon director of veterans affairs reviewmay be revised to meet current compliance requirements. Electronically signed by Claudia Mesa M.D. Claudia Mesa M.D. 06/12/2022 9:15:12 AM Number of Addenda: 0 Note Initiated On: 06/12/2022 8:32 AM Claudia Mesa MD ENDOSCOPY PROCEDURES Fi nal Result from Last 3 Months or Most Recently Relevant to Health Maintenance Insurance MEDICARE ADVANTAGE MEDICARE ADVANTAGE [place] [id number] [place] [id number] Advance Directives For more information, please contact: [phone] Documents on File Type Date Recorded Patient Computer Laboratory Technician Expl anation ADVANCE DIRECTIVE 01/25/2020 8:25 AM [...] 2:27 PM 03/27/2020 6:24 PM Care Teams Help Desk Assistant Relationship Specialty Start Date End Date Melvin Cisneros MD [address] [place] [address] PCP - General Family Medicine 09/03/21 Feliciano Bates MD Surgeon Cardiothoracic Surgery 02/05/20 Claudia Mesa MD Consulting Physician Gastroenterology 09/17/20 Sae Suárez MD Consulting Physician Otolaryngology 09/17/20 Simona Long MD Medical Oncologist/Hematologis t Medical Oncology 01/08/21 Norma Altamiarno MD [address] [place] [address] Radiation Oncologist Radiation Oncology 12/23/21 Freeman Nickerson MD [address] [place] [address] [place] [address] Consulting Physician Pulmonary Disease 09/07/22 Preet Mak MD [address] [place] [address] [address] [place] [address] Surgeon Orthopedic Surgery 07/13/23
[2024-10-09 10:19] VITALS: BP 113/81; PULSE 67; RESP 20; O2SAT 97
--- NOTE | 2024-10-09 10:42 | ED.GENADULT ---
HPI - General Adult General Chief complaint: Ear Stated complaint: left ear, pain, hearing issues, pressure Time Seen by Provider: 10/09/24 08:47 History of Present Illness HPI narrative: 74-year-old male presents emergency department for evaluation for worsening left ear pain. Patient states that has been worsening over the last few weeks. Patient was evaluated urgent care started on Flonase. Patient states left ear pain and worsened since then. Related Data Home Medications ?Medication ?Instructions ?Recorded ?Confirmed ?Last Taken ?Type clopidogrel 75 mg tablet 75 mg PO DAILY 07/22/21 05/20/22 Unknown History levothyroxine 175 mcg capsule 175 mcg PO DAILY 07/22/21 05/20/22 Unknown History hydrochlorothiazide 25 mg tablet 25 mg PO DAILY 05/20/22 05/20/22 Unknown History Allergies Allergy/AdvReac Type Severity Reaction Status Date / Time ibuprofen Allergy Severe intolerance Verified 05/20/22 11:01 kidney Review of Systems Review of Systems: All systems reviewed & are unremarkable except as noted in HPI and below PMFSH Family History Family History Mother Lung cancer Grandparent Cerebrovascular accident Social History Social History (Updated 05/20/22 @ 11:06 by Lynn Dill CMA) Smoking status: Never smoker Alcohol intake: never Substance use: never Lack of Transportation: No Lack of Food: Never True Current Housing: I Have Housing Concerned About Future Housing: No Difficulty Paying Gas/Electric Bills: No Difficulty Paying for Meds: No Currently Unemployed: No Education: Trade/Vocational Certificate Difficulty w/ Childcare or Family Care: No Exam Narrative: APPEARANCE: Well appearing, no pain, no distress, well-nourished. HEAD: normocephalic, atraumatic. EYES: PERRLA/EOMI, conjunctivae clear. NOSE: Normal no drainage EARS: Distended left tympanic membrane with erythema with purulence behind the TM THROAT: Pharynx clear, no exudate. NECK: Supple. No adenopathy, no masses. RESPIRATORY: Airway patent, respirations nonlabored. Clear to auscultation bilaterally, no rales, rhonchi, wheezing. CARDIOVASCULAR: Regular rate and rhythm without murmurs rubs or gallops. ABDOMINAL: Soft, nontender, nondistended, normal bowel sounds MUSCULOSKELETAL: Moves all extremities. Strength/ROM intact, No edema, No calf tenderness. NEURO: Alert. Cranial nerves II through XII intact. Good gait. Good coordination SKIN: Warm, dry. Normal Color Course Vital Signs Vital signs: Vital Signs Temperature 98.1 F 10/09/24 08:51 Pulse Rate 89 10/09/24 08:51 Respiratory Rate 18 10/09/24 08:51 Blood Pressure 154/95 H 10/09/24 08:51 Pulse Oximetry 97 10/09/24 08:51 Temperature 98.5 F 10/09/24 11:02 Pulse Rate 74 10/09/24 11:02 Respiratory Rate 14 10/09/24 11:02 Blood Pressure 147/93 H 10/09/24 11:02 Pulse Oximetry 98 10/09/24 11:02 Medical Decision Making MDM Narrative Medical decision making narrative: 74-year-old male presents emergency department for evaluation for left ear pain. Left ears concerning for otitis media. Patient is established with ENT. Patient was encouraged to call them for follow-up. Patient was started on Augmentin the emergency department will be discharged home on Augmentin. Differential Diagnosis Differential Diagnosis: Otalgia, otitis media, otitis externa Vital Signs Vital Signs: Vital Signs Temperature 98.1 F 10/09/24 08:51 Pulse Rate 89 10/09/24 08:51 Respiratory Rate 18 10/09/24 08:51 Blood Pressure 154/95 H 10/09/24 08:51 Pulse Oximetry 97 10/09/24 08:51 Temperature 98.5 F 10/09/24 11:02 Pulse Rate 74 10/09/24 11:02 Respiratory Rate 14 10/09/24 11:02 Blood Pressure 147/93 H 10/09/24 11:02 Pulse Oximetry 98 10/09/24 11:02 Discharge Plan Discharge Clinical Impression: Otitis media Patient Disposition: Home Condition: Stable Instructions: Antibiotic Form, Ear Infection (AC), Earache (ED) Additional Instructions: Tylenol for pain control. Antibiotic as directed until completed. Have close follow-up with your primary care physician. Have close follow-up with ENT. If you have any worsening symptoms then please call or return to the emergency department. Patient Language: Cook Islander Prescriptions: New amoxicillin-pot clavulanate 875-125 mg tablet 1 tablet PO Q12H 7 Days Qty: 14 0RF No Action levothyroxine 175 mcg capsule 175 mcg PO DAILY clopidogrel 75 mg tablet 75 mg PO DAILY hydrochlorothiazide 25 mg tablet 25 mg PO DAILY Follow-up/Referrals: Amelia,MD Melvin [Primary Care Provider] - Tristan Boles MD [Physician] -
[2024-10-09 11:02] VITALS: BP 147/93; PULSE 74; RESP 14; TEMP 36.9; O2SAT 98
== END 2024-10-09 11:03 | disposition home or self-care (01) ==
PROVIDERS: Emergency Provider Emergency Medicine; PCP Hospitalist
DX: H66.92 Otitis media, unspecified, left ear (principal)
CPT/HCPCS: 99283; A9270